=== PATIENT | male | born 1955 | race American Indian/Alaskan Native ===

== ENCOUNTER 2018-06-08 11:21 | Inpatient (IN) | payer OTHER ==
[2018-06-08] MEDS ORDERED: VANCOMYCIN/NS 1 GM/250 ML 1 GM/250 ML BAG IV ONE (12:52)
[2018-06-08] MEDS ORDERED: UNASYN/NS 3 GM/100 ML 3 GM/100 ML BAG IV SCH (13:00)
[2018-06-08] MEDS ORDERED: MORPHINE IV STA (13:54)
--- NOTE | 2018-06-08 13:54 | XRay Report ---
FINAL REPORT PROCEDURE: XR FOOT 3+V RT TECHNIQUE: Right foot, three views HISTORY: SWELLING AND PAIN COMPARISON: No prior studies are available for comparison. FINDINGS: There is dorsal soft tissue swelling. There are osteoarthritic changes particularly at the 1st metatarsophalangeal joint. There is an exostosisoff the proximal 1st phalanx. No acute fracture or dislocation is seen. IMPRESSION: No acute fracture is seen.
[2018-06-08 14:00] LABS: Basophils % (Auto) 0.4 % (0.0-1.8); Eosinophils # (Auto) 0.4 K/mm3 (0.0-0.4); Eosinophils % (Auto) 3.5 % (0.0-4.3); Hematocrit 41.8 % (35.5-45.6); Hemoglobin 13.3 gm/dl (11.8-15.2); Lymphocytes # (Auto) 1.6 K/mm3 (1.2-5.4); Lymphocytes % (Auto) 14.2 % (13.4-35.0); Mean Corpuscular HGB Conc 32 % (32-34); Mean Corpuscular Hemoglobin 30 pg (28-32); Mean Corpuscular Volume 95 fl (84-94); Monocytes # (Auto) 0.7 K/mm3 (0.0-0.8); Monocytes % (Auto) 6.4 % (0.0-7.3); Platelet Count 436 K/mm3 (140-440); Red Blood Count 4.39 M/mm3 (3.65-5.03); Red Cell Distribution Width 14.3 % (13.2-15.2)
--- NOTE | 2018-06-08 14:05 | XRay Report ---
FINAL REPORT PROCEDURE: XR TIBIA FIBULA 2V RT TECHNIQUE: Right tibia and fibula, AP and lateral views HISTORY: SWELLING AND PAIN COMPARISON: No prior studies are available for comparison. FINDINGS: No acute fracture or dislocation is seen. No focal osseous lesions. 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
[2018-06-08 14:11] LABS: Albumin 3.7 g/dL (3.9-5); BUN/Creatinine Ratio 23; Blood Urea Nitrogen 16 mg/dL (9-20); Hemolysis Index 211
[2018-06-08 14:30] LABS: Alanine Aminotransferase 23 units/L (7-56)
--- NOTE | 2018-06-08 16:05 | Emergency Department Report ---
Blank Doc - Documentation Documentation: I evaluated patient alongside my colleague Mr. Shahram ESQUIVEL. I discussed cased with Dr. Clifton hospitalist who accepted patient for IV abx of extensive right leg cellulitis.
[2018-06-08] MEDS ORDERED: ZOFRAN IV PRN (17:49)
[2018-06-08] MEDS ORDERED: TYLENOL PO PRN (17:49)
[2018-06-08] MEDS ORDERED: SODIUM CHLORIDE FLUSH SYRINGE 10 ML IV PRN (17:49)
--- NOTE | 2018-06-08 17:49 | History and Physical Report ---
History of Present Illness Date of examination: 06/08/18 Date of admission: 06/08/18 16:02 Chief complaint: CC Rt Leg abscess and Erythema for one week History of present illness: TORRES MARTINEZ 62 y/o male with no sig PMH comes in for Rt leg swelling above anlkle assoc with red ness for one week.Also drainage present.Low grade feverPain 04/05 Past History Past Medical History: No medical history Past Surgical History: No surgical history Social history: no significant social history Family history: hypertension Medications and Allergies Allergies Allergy/AdvReac Type Severity Reaction Status Date / Time No Known Allergies Allergy Unverified 06/08/18 11:40 Active Meds: Active Medications Ampicillin Sodium/Sulbactam Sodium (Unasyn/Ns 3 Gm/100 Ml) 3 gm in 100 mls @ 200 mls/hr IV ONCE ASIA Review of Systems All systems: negative Exam - Constitutional Vitals: Temp Pulse Resp BP Pulse Ox 97.6 F 60 18 159/80 100 06/08/18 17:33 06/08/18 17:33 06/08/18 17:33 06/08/18 17:33 06/08/18 11:40 General appearance: Present: no acute distress, well-nourished - EENT Eyes: Present: PERRL ENT: hearing intact, clear oral mucosa - Neck Neck: Present: supple, normal ROM - Respiratory Respiratory effort: normal Respiratory: bilateral: CTA - Cardiovascular Heart rate: 76 Rhythm: regular Heart Sounds: Present: S1 & S2. Absent: rub, click - Extremities Extremities: pulses symmetrical, No edema Extremity abnormal: erythema, other (Swelling with drainage 5cmx4 cm above rt ankle on Lateral aspect extensive erythema upto mid calf) Peripheral Pulses: within normal limits - Abdominal General gastrointestinal: Present: soft, non-tender, non-distended, normal bowel sounds Male genitourinary: Present: normal - Rectal Rectal Exam: deferred - Integumentary Integumentary: Present: clear, warm, dry - Musculoskeletal Musculoskeletal: gait normal, strength equal bilaterally - Psychiatric Psychiatric: appropriate mood/affect, intact judgment & insight - Neurologic Neurologic: CNII-XII intact, moves all extremities - Allied Health Allied health notes reviewed: nursing, case management Results - Labs CBC & Chem 7: 06/09/18 05:54 06/09/18 05:54 Labs: Laboratory Last Values WBC 11.3 K/mm3 (4.5-11.0) H 06/08/18 13:40 RBC 4.39 M/mm3 (3.65-5.03) 06/08/18 13:40 Hgb 13.3 gm/dl (11.8-15.2) 06/08/18 13:40 Hct 41.8 % (35.5-45.6) 06/08/18 13:40 MCV 95 fl (84-94) H 06/08/18 13:40 MCH 30 pg (28-32) 06/08/18 13:40 MCHC 32 % (32-34) 06/08/18 13:40 RDW 14.3 % (13.2-15.2) 06/08/18 13:40 Plt Count 436 K/mm3 (140-440) 06/08/18 13:40 Lymph % (Auto) 14.2 % (13.4-35.0) 06/08/18 13:40 [place] % (Auto) 6.4 % (0.0-7.3) 06/08/18 13:40 Eos % (Auto) 3.5 % (0.0-4.3) 06/08/18 13:40 Baso % (Auto) 0.4 % (0.0-1.8) 06/08/18 13:40 Lymph # 1.6 K/mm3 (1.2-5.4) 06/08/18 13:40 Clarke # 0.7 K/mm3 (0.0-0.8) 06/08/18 13:40 Eos # 0.4 K/mm3 (0.0-0.4) 06/08/18 13:40 Baso # 0.0 K/mm3 (0.0-0.1) 06/08/18 13:40 Seg Neutrophils % 75.5 % (40.0-70.0) H 06/08/18 13:40 Seg Neutrophils # 8.5 K/mm3 (1.8-7.7) H 06/08/18 13:40 Sodium 145 mmol/L (137-145) 06/08/18 13:40 Potassium 5.1 mmol/L (3.6-5.0) H 06/08/18 13:40 Chloride 106.1 mmol/L (98-107) 06/08/18 13:40 Carbon Dioxide 29 mmol/L (22-30) 06/08/18 13:40 Anion Gap 15 mmol/L 06/08/18 13:40 BUN 16 mg/dL (9-20) 06/08/18 13:40 Creatinine 0.7 mg/dL (0.8-1.5) L 06/08/18 13:40 Estimated GFR > 60 ml/min 06/08/18 13:40 BUN/Creatinine Ratio 23 % 06/08/18 13:40 Glucose 66 mg/dL (75-100) L 06/08/18 13:40 Calcium 9.0 mg/dL (8.4-10.2) 06/08/18 13:40 Total Bilirubin 0.30 mg/dL (0.1-1.2) 06/08/18 13:40 AST 34 units/L (5-40) 06/08/18 13:40 ALT 23 units/L (7-56) 06/08/18 13:40 Alkaline Phosphatase 64 units/L (35-129) 06/08/18 13:40 Total Protein 8.1 g/dL (6.3-8.2) 06/08/18 13:40 Albumin 3.7 g/dL (3.9-5) L 06/08/18 13:40 Albumin/Globulin Ratio 0.8 % 06/08/18 13:40 Assessment and Plan Advance Directives: Yes (FC) VTE prophylaxis?: Chemical Plan of care discussed with patient/family: Yes - Patient Problems (1) Cellulitis of leg, right Current Visit: Yes Status: Acute Plan to address problem: With abscess. IV abx initiated Surgery consult requested Pain control (2) DVT prophylaxis Current Visit: Yes Status: Acute Plan to address problem: On Lovenox and GI prophylaxis
[2018-06-08] MEDS ORDERED: UNASYN/NS 3 GM/100 ML 3 GM/100 ML BAG IV ONE (18:00)
[2018-06-08] MEDS: ceFAZolin 2 GM in NACL 0.9% 100 ML IV SCH (18:48)
[2018-06-08] MEDS: MORPHINE IV PRN (20:44)
[2018-06-09] MEDS: PEPCID PO SCH ×3 (00:17→22:11)
[2018-06-09] MEDS: SODIUM CHLORIDE FLUSH SYRINGE 10 ML IV SCH ×3 (00:18→22:00)
[2018-06-09] MEDS: ceFAZolin 2 GM in NACL 0.9% 100 ML IV SCH ×3 (02:45→17:43)
[2018-06-09 06:53] LABS: Basophils % (Auto) 0.3 % (0.0-1.8); Eosinophils # (Auto) 0.4 K/mm3 (0.0-0.4); Eosinophils % (Auto) 3.8 % (0.0-4.3); Hematocrit 35.8 % (35.5-45.6); Hemoglobin 12.1 gm/dl (11.8-15.2); Lymphocytes # (Auto) 1.4 K/mm3 (1.2-5.4); Lymphocytes % (Auto) 15.1 % (13.4-35.0); Mean Corpuscular HGB Conc 34 % (32-34); Mean Corpuscular Hemoglobin 32 pg (28-32); Mean Corpuscular Volume 93 fl (84-94); Monocytes # (Auto) 0.7 K/mm3 (0.0-0.8); Monocytes % (Auto) 7.6 % (0.0-7.3); Platelet Count 393 K/mm3 (140-440); Red Blood Count 3.85 M/mm3 (3.65-5.03); Red Cell Distribution Width 13.9 % (13.2-15.2)
[2018-06-09 07:11] LABS: Alanine Aminotransferase 16 units/L (7-56); Albumin 3.1 g/dL (3.9-5); BUN/Creatinine Ratio 19; Blood Urea Nitrogen 15 mg/dL (9-20); Calcium 8.4 mg/dL (8.4-10.2); Hemolysis Index 1
[2018-06-09] MEDS ORDERED: VANCOMYCIN PHARMACY TO DOSE IV SCH (08:00)
[2018-06-09] MEDS ORDERED: AFLURIA QUAD 2018-2019 SYRINGE IM ONE (12:00)
[2018-06-09] MEDS: VANCOMYCIN 1,500 MG in NACL 0.9% 500 ML 500 ML IV SCH ×2 (12:26→22:12)
--- NOTE | 2018-06-09 13:20 | Progress Note ---
Assessment and Plan Assessment and plan: Patient is a 62 yo man with no sig PMH comes in for Rt leg swelling and pains Cellulitis of leg, right: IV abx initiated, Surgery consult requested, Pain control Hyperkalemia, resolved: recheck bmp Hypoglycemia, resolved: repeat levels History Interval history: Patient was seen and examined. Follow-up on current diagnosis of right leg infection. Overnight uneventful. Patient denies any chest pain, shortness breath , nausea/vomiting or severe headaches. Imaging, nursing note, chart, labs and old chart reviewed. Discussed with patient. Hospitalist Physical - Physical exam Narrative exam: GEN: WDWN, NAD, Awake, Alert, Orientated HEENT: NCAT, EOMI, PERRL, OP Clear NECK: supple, no adenopathy, no thyromegaly, no JVD CVS/HEART: RRR, normal S1S2, pulses present bilaterally CHEST/LUNGS: CTA B, Symmetrical chest expansion, good air entry bilaterally GI/Abdomen: soft, NTND, good bowel sounds, no guarding or rebound /Bladder: no suprapubic tenderness, no CVA or paraspinal tenderness EXT/Skin: right lower ulceration MSK: FROM x 4 Neuro: CN 2-12 grossly intact, no new focal deficits Psych: calm - Constitutional Vitals: Temp Pulse Resp BP Pulse Ox 98.4 F 61 20 146/77 98 06/09/18 12:45 06/09/18 12:45 06/09/18 12:45 06/09/18 12:45 06/09/18 12:45 General appearance: Present: no acute distress, well-nourished Results - Labs CBC & Chem 7: 06/09/18 05:54 06/09/18 05:54 Labs: Laboratory Last Values WBC 9.5 K/mm3 (4.5-11.0) 06/09/18 05:54 RBC 3.85 M/mm3 (3.65-5.03) 06/09/18 05:54 Hgb 12.1 gm/dl (11.8-15.2) 06/09/18 05:54 Hct 35.8 % (35.5-45.6) D 06/09/18 05:54 MCV 93 fl (84-94) 06/09/18 05:54 MCH 32 pg (28-32) 06/09/18 05:54 MCHC 34 % (32-34) 06/09/18 05:54 RDW 13.9 % (13.2-15.2) 06/09/18 05:54 Plt Count 393 K/mm3 (140-440) 06/09/18 05:54 Lymph % (Auto) 15.1 % (13.4-35.0) 06/09/18 05:54 [place] % (Auto) 7.6 % (0.0-7.3) H 06/09/18 05:54 Eos % (Auto) 3.8 % (0.0-4.3) 06/09/18 05:54 Baso % (Auto) 0.3 % (0.0-1.8) 06/09/18 05:54 Lymph # 1.4 K/mm3 (1.2-5.4) 06/09/18 05:54 [place] # 0.7 K/mm3 (0.0-0.8) 06/09/18 05:54 Eos # 0.4 K/mm3 (0.0-0.4) 06/09/18 05:54 Baso # 0.0 K/mm3 (0.0-0.1) 06/09/18 05:54 Seg Neutrophils % 73.2 % (40.0-70.0) H 06/09/18 05:54 Seg Neutrophils # 6.9 K/mm3 (1.8-7.7) 06/09/18 05:54 Sodium 144 mmol/L (137-145) 06/09/18 05:54 Potassium 4.0 mmol/L (3.6-5.0) D 06/09/18 05:54 Chloride 107.6 mmol/L (98-107) H 06/09/18 05:54 Carbon Dioxide 29 mmol/L (22-30) 06/09/18 05:54 Anion Gap 11 mmol/L 06/09/18 05:54 BUN 15 mg/dL (9-20) 06/09/18 05:54 Creatinine 0.8 mg/dL (0.8-1.5) 06/09/18 05:54 Estimated GFR > 60 ml/min 06/09/18 05:54 BUN/Creatinine Ratio 19 % 06/09/18 05:54 Glucose 94 mg/dL (75-100) 06/09/18 05:54 Hemoglobin A1c 6.1 % (4-6) H 06/08/18 19:32 Calcium 8.4 mg/dL (8.4-10.2) 06/09/18 05:54 Total Bilirubin 0.20 mg/dL (0.1-1.2) 06/09/18 05:54 AST 13 units/L (5-40) 06/09/18 05:54 ALT 16 units/L (7-56) 06/09/18 05:54 Alkaline Phosphatase 62 units/L (35-129) 06/09/18 05:54 Total Protein 6.7 g/dL (6.3-8.2) 06/09/18 05:54 Albumin 3.1 g/dL (3.9-5) L 06/09/18 05:54 Albumin/Globulin Ratio 0.9 % 06/09/18 05:54
[2018-06-09] MEDS: PERCOCET 5/325 PO PRN (17:42)
[2018-06-10] MEDS: ceFAZolin 2 GM in NACL 0.9% 100 ML IV SCH ×3 (01:58→18:23)
[2018-06-10 06:54] LABS: Hematocrit 39.5 % (35.5-45.6); Hemoglobin 13.1 gm/dl (11.8-15.2); Mean Corpuscular HGB Conc 33 % (32-34); Mean Corpuscular Hemoglobin 31 pg (28-32); Mean Corpuscular Volume 93 fl (84-94); Platelet Count 426 K/mm3 (140-440); Red Blood Count 4.24 M/mm3 (3.65-5.03); Red Cell Distribution Width 14.2 % (13.2-15.2)
[2018-06-10] MEDS: PERCOCET 5/325 PO PRN ×2 (07:06→19:32)
[2018-06-10 07:08] LABS: BUN/Creatinine Ratio 15; Blood Urea Nitrogen 12 mg/dL (9-20); Calcium 8.7 mg/dL (8.4-10.2); Hemolysis Index 20
[2018-06-10] MEDS: VANCOMYCIN 1,500 MG in NACL 0.9% 500 ML 500 ML IV SCH (08:55)
[2018-06-10] MEDS: PEPCID PO SCH ×2 (09:03→22:38)
[2018-06-10] MEDS: SODIUM CHLORIDE FLUSH SYRINGE 10 ML IV SCH ×2 (09:04→22:39)
--- NOTE | 2018-06-10 14:12 | Progress Note ---
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 Wong, he request Vascular surgeon to drain. 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 Hughes for drainage History Interval history: Patient was seen and examined. Follow-up on current diagnosis of right leg infection. Overnight uneventful. Patient denies any chest pain, shortness breath , nausea/vomiting or severe headaches. Imaging, nursing note, chart, labs and old chart reviewed. Discussed with patient. Hospitalist Physical - Physical exam Narrative exam: GEN: WDWN, NAD, Awake, Alert, Orientated x 3 HEENT: NCAT, EOMI, PERRL, OP Clear NECK: supple, no adenopathy, no thyromegaly, no JVD CVS/HEART: RRR, normal S1S2, pulses present bilaterally CHEST/LUNGS: CTA B, Symmetrical chest expansion, good air entry bilaterally GI/Abdomen: soft, NTND, good bowel sounds, no guarding or rebound /Bladder: no suprapubic tenderness, no CVA or paraspinal tenderness EXT/Skin: right lower ulceration with anterior necrotic area and area of red moveable fluid above the necrotic core MSK: FROM x 4 Neuro: CN 2-12 grossly intact, no new focal deficits Psych: calm - Constitutional Vitals: Temp Pulse Resp BP Pulse Ox 98.1 F 62 20 145/83 99 06/10/18 11:37 06/10/18 11:37 06/10/18 11:37 06/10/18 11:37 06/10/18 11:37 General appearance: Present: no acute distress, well-nourished Results - Labs CBC & Chem 7: 06/10/18 05:30 06/10/18 05:30 Labs: Laboratory Last Values WBC 13.0 K/mm3 (4.5-11.0) H 06/10/18 05:30 RBC 4.24 M/mm3 (3.65-5.03) 06/10/18 05:30 Hgb 13.1 gm/dl (11.8-15.2) 06/10/18 05:30 Hct 39.5 % (35.5-45.6) 06/10/18 05:30 MCV 93 fl (84-94) 06/10/18 05:30 MCH 31 pg (28-32) 06/10/18 05:30 MCHC 33 % (32-34) 06/10/18 05:30 RDW 14.2 % (13.2-15.2) 06/10/18 05:30 Plt Count 426 K/mm3 (140-440) 06/10/18 05:30 Lymph % (Auto) 15.1 % (13.4-35.0) 06/09/18 05:54 [place] % (Auto) 7.6 % (0.0-7.3) H 06/09/18 05:54 Eos % (Auto) 3.8 % (0.0-4.3) 06/09/18 05:54 Baso % (Auto) 0.3 % (0.0-1.8) 06/09/18 05:54 Lymph # 1.4 K/mm3 (1.2-5.4) 06/09/18 05:54 [place] # 0.7 K/mm3 (0.0-0.8) 06/09/18 05:54 Eos # 0.4 K/mm3 (0.0-0.4) 06/09/18 05:54 Baso # 0.0 K/mm3 (0.0-0.1) 06/09/18 05:54 Seg Neutrophils % 73.2 % (40.0-70.0) H 06/09/18 05:54 Seg Neutrophils # 6.9 K/mm3 (1.8-7.7) 06/09/18 05:54 Sodium 138 mmol/L (137-145) 06/10/18 05:30 Potassium 4.2 mmol/L (3.6-5.0) 06/10/18 05:30 Chloride 101.9 mmol/L (98-107) 06/10/18 05:30 Carbon Dioxide 27 mmol/L (22-30) 06/10/18 05:30 Anion Gap 13 mmol/L 06/10/18 05:30 BUN 12 mg/dL (9-20) 06/10/18 05:30 Creatinine 0.8 mg/dL (0.8-1.5) 06/10/18 05:30 Estimated GFR > 60 ml/min 06/10/18 05:30 BUN/Creatinine Ratio 15 % 06/10/18 05:30 Glucose 94 mg/dL (75-100) 06/10/18 05:30 Hemoglobin A1c 6.1 % (4-6) H 06/08/18 19:32 Calcium 8.7 mg/dL (8.4-10.2) 06/10/18 05:30 Magnesium 1.90 mg/dL (1.7-2.3) 06/10/18 05:30 Total Bilirubin 0.20 mg/dL (0.1-1.2) 06/09/18 05:54 AST 13 units/L (5-40) 06/09/18 05:54 ALT 16 units/L (7-56) 06/09/18 05:54 Alkaline Phosphatase 62 units/L (35-129) 06/09/18 05:54 Total Protein 6.7 g/dL (6.3-8.2) 06/09/18 05:54 Albumin 3.1 g/dL (3.9-5) L 06/09/18 05:54 Albumin/Globulin Ratio 0.9 % 06/09/18 05:54
--- NOTE | 2018-06-10 17:46 | Consultation ---
History of Present Illness - Reason for Consult Consult date: 06/10/18 Evaluation for Peripheral Arterial Disease Requesting physician: JESSICA WHITMORE - History of Present Illness This patient is a 62-year-old -Cypriot male that was admitted 2017 via the emergency room due to right lower shown any cellulitis and possible abscess. The patient was unaware of any recent trauma. He states he awoke one morning to find his leg swollen with a new onset wound. This did not improve, therefore he went to the emergency room where his since been evaluated and admitted. Past History Past Medical History: other (BPH). denies: hypertension (history of hypertension that reportedly returned to baseline after he lost weight, he denies taking any chronic medications.) Past Surgical History: No surgical history Social history: no significant social history, Lives alone. denies: smoking ( remote brief period (approximately 6 months) of smoking history in his 20s) Family history: hypertension Medications and Allergies Allergies Allergy/AdvReac Type Severity Reaction Status Date / Time No Known Allergies Allergy Unverified 06/08/18 11:40 Active Meds: Active Medications Acetaminophen (Tylenol) 650 mg PO Q4H PRN PRN Reason: Pain MILD(1-3)/Fever >100.5/LUNA Famotidine (Pepcid) 20 mg PO BID [facility] Last Admin: 06/10/18 09:03 Dose: 20 mg Cefazolin Sodium 2 gm/ Sodium (Chloride) 100 mls @ 200 mls/hr IV Q8H [facility] Last Admin: 06/10/18 09:04 Dose: 200 mls/hr Vancomycin HCl 1,500 mg/ (Sodium Chloride) 515 mls @ 333.333 mls/hr IV Q12H [facility] Last Admin: 06/10/18 08:55 Dose: 333.333 mls/hr Morphine Sulfate (Morphine) 2 mg IV Q4H PRN PRN Reason: Pain, Moderate (4-6) if NPO Last Admin: 06/08/18 20:44 Dose: 2 mg Ondansetron HCl (Zofran) 4 mg IV Q8H PRN PRN Reason: Nausea And Vomiting Oxycodone/Acetaminophen (Percocet 5/325) 1 tab PO Q6H PRN PRN Reason: Pain, Moderate (4-6) Last Admin: 06/10/18 07:06 Dose: 1 tab Sodium Chloride (Sodium Chloride Flush Syringe 10 Ml) 10 ml IV BID [facility] Last Admin: 06/10/18 09:04 Dose: 10 ml Sodium Chloride (Sodium Chloride Flush Syringe 10 Ml) 10 ml IV PRN PRN PRN Reason: LINE FLUSH Review of Systems All systems: negative (he states the pain to his right leg has improved following admission, but now he complains of significant left lateral knee pain. ) Exam - Constitutional Vitals: Temp Pulse Resp BP Pulse Ox 98.1 F 62 20 145/83 99 06/10/18 11:37 06/10/18 11:37 06/10/18 11:37 06/10/18 11:37 06/10/18 11:37 General appearance: Present: no acute distress - EENT Eyes: Present: EOM intact ENT: hearing intact - Neck Neck: Present: supple - Respiratory Respiratory effort: normal - Extremities Extremities: no ischemia, pulses intact (is palpable dorsalis pedis and posterior tibial pulses bilaterally) Extremity abnormal: edema (significant pitting edema on the right lower extremity, he has bandages over the distal one third of his right lower leg. He has erythema in the same area. The bandages are clean without apparent strike through at present. The wound care nurse pictures were reviewed.) - Psychiatric Psychiatric: appropriate mood/affect, intact judgment & insight, cooperative - Neurologic Neurologic: no focal deficits Results - Labs CBC & Chem 7: 06/10/18 05:30 06/10/18 05:30 Labs: Abnormal lab results 06/10/18 Range/Units 05:30 WBC 13.0 H (4.5-11.0) K/mm3 Assessment and Plan This patient was admitted with a new onset wound his right leg starting about 1 week ago. He's had progressive edema and erythema. He has been admitted and started on intravenous antibiotics. He currently has a Leukocytosis of 13,000. He states that the pain to his right leg has improved following admission. He now complains of l new onset eft lateral knee pain. A general surgery/wound care consult has been requested to evaluate for possible abscess/I&D as necessary. A vascular surgery consult has been requested to evaluate for possible PVD which may impair his ability to heal distal wounds. I will order an arterial duplex with JOSE to further evaluate, but I suspect he will have adequate blood flow to heal distal wounds. Discussed with the patient. - Patient Problems (1) Cellulitis of leg, right Current Visit: Yes Status: Acute
[2018-06-11] MEDS: VANCOMYCIN 1,500 MG in NACL 0.9% 500 ML 500 ML IV SCH ×3 (01:01→20:33)
[2018-06-11] MEDS: ceFAZolin 2 GM in NACL 0.9% 100 ML IV SCH ×3 (01:01→17:55)
[2018-06-11] MEDS: PERCOCET 5/325 PO PRN ×2 (03:16→20:39)
--- NOTE | 2018-06-11 11:00 | Consultation ---
History of Present Illness Consult date: 06/11/18 Reason for consult: other (Right leg infection) - History of present illness History of present illness: 62 yo diabetic male with 5 day h/o right leg infection. He denies associated trauma. Past History Past Medical History: other (BPH). denies: hypertension (history of hypertension that reportedly returned to baseline after he lost weight, he denies taking any chronic medications.) Past Surgical History: No surgical history Social history: no significant social history, Lives alone. denies: smoking ( remote brief period (approximately 6 months) of smoking history in his 20s) Family history: hypertension Medications and Allergies Allergies Allergy/AdvReac Type Severity Reaction Status Date / Time No Known Allergies Allergy Unverified 06/08/18 11:40 Active Meds: Active Medications Acetaminophen (Tylenol) 650 mg PO Q4H PRN PRN Reason: Pain MILD(1-3)/Fever >100.5/LUNA Famotidine (Pepcid) 20 mg PO BID [facility] Last Admin: 06/10/18 22:38 Dose: 20 mg Cefazolin Sodium 2 gm/ Sodium (Chloride) 100 mls @ 200 mls/hr IV Q8H [facility] Last Admin: 06/11/18 10:54 Dose: 200 mls/hr Vancomycin HCl 1,500 mg/ (Sodium Chloride) 515 mls @ 333.333 mls/hr IV Q12H [facility] Last Admin: 06/11/18 08:04 Dose: 333.333 mls/hr Morphine Sulfate (Morphine) 2 mg IV Q4H PRN PRN Reason: Pain, Moderate (4-6) if NPO Last Admin: 06/08/18 20:44 Dose: 2 mg Ondansetron HCl (Zofran) 4 mg IV Q8H PRN PRN Reason: Nausea And Vomiting Oxycodone/Acetaminophen (Percocet 5/325) 1 tab PO Q6H PRN PRN Reason: Pain, Moderate (4-6) Last Admin: 06/11/18 03:16 Dose: 1 tab Sodium Chloride (Sodium Chloride Flush Syringe 10 Ml) 10 ml IV BID [facility] Last Admin: 06/10/18 22:39 Dose: 10 ml Sodium Chloride (Sodium Chloride Flush Syringe 10 Ml) 10 ml IV PRN PRN PRN Reason: LINE FLUSH Review of Systems All systems: negative (none.) Exam Vital Signs Temp Pulse Resp BP Pulse Ox 98.3 F 60 18 145/85 100 06/08/18 11:40 06/08/18 11:40 06/08/18 11:40 06/08/18 11:40 06/08/18 11:40 - General physical appearance Positive: well developed, well nourished, no distress - Eyes Positive: PERRL, normal occular movement - ENT Positive: normal pinna, normal nares, normal mucosa, no hearing loss, no congestion - Neck Positive: no masses, no bruits, trachea midline, no venous distension - Respiratory Positive: normal expansion, normal respiratory effort, clear to auscultation - Cardiovascular Rhythm: regular Heart Sounds: Present: S1 & S2. Absent: rub, click - Extremities Extremities: abnormal (Right DP and PT pulses are 2+. The right anterior distal leg has a 7.5 cm area of cellulitis with a possible 3 cm area of fluctuance. This area is mildly tender.) Results - Labs 06/10/18 05:30 06/10/18 05:30 Assessment and Plan - Patient Problems (1) Cellulitis of leg, right Current Visit: Yes Status: Acute Plan to address problem: 1) Elevation of RLE 2) Agree with IV antibiotics 3) MRI of RLE to look for evidence of abscess
--- NOTE | 2018-06-11 13:39 | Progress Note ---
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 Wong, he request Vascular surgeon to drain. So, I consult Vascular surgeon donor relations manager for evaluate for PAD and consulted wound care physician, Dr. Hughes for drainage MRI pending and arterial doppler pending History Interval history: Patient was seen and examined. Follow-up on current diagnosis of right leg infection. Overnight uneventful. Patient denies any chest pain, shortness breath , nausea/vomiting or severe headaches. Imaging, nursing note, chart, labs and old chart reviewed. Discussed with patient. Hospitalist Physical - Physical exam Narrative exam: GEN: WDWN, NAD, Awake, Alert, Orientated x 3 HEENT: NCAT, EOMI, PERRL, OP Clear NECK: supple, no adenopathy, no thyromegaly, no JVD CVS/HEART: RRR, normal S1S2, pulses present bilaterally CHEST/LUNGS: CTA B, Symmetrical chest expansion, good air entry bilaterally GI/Abdomen: soft, NTND, good bowel sounds, no guarding or rebound /Bladder: no suprapubic tenderness, no CVA or paraspinal tenderness EXT/Skin: right lower ulceration with anterior necrotic area and area of red moveable fluid above the necrotic core MSK: FROM x 4 Neuro: CN 2-12 grossly intact, no new focal deficits Psych: calm - Constitutional Vitals: Temp Pulse Resp BP Pulse Ox 99.0 F 61 20 136/83 98 06/11/18 11:03 06/11/18 11:03 06/11/18 11:03 06/11/18 11:03 06/11/18 11:03 General appearance: Present: no acute distress Results - Labs CBC & Chem 7: 06/10/18 05:30 06/10/18 05:30 Labs: Laboratory Last Values WBC 13.0 K/mm3 (4.5-11.0) H 06/10/18 05:30 RBC 4.24 M/mm3 (3.65-5.03) 06/10/18 05:30 Hgb 13.1 gm/dl (11.8-15.2) 06/10/18 05:30 Hct 39.5 % (35.5-45.6) 06/10/18 05:30 MCV 93 fl (84-94) 06/10/18 05:30 MCH 31 pg (28-32) 06/10/18 05:30 MCHC 33 % (32-34) 06/10/18 05:30 RDW 14.2 % (13.2-15.2) 06/10/18 05:30 Plt Count 426 K/mm3 (140-440) 06/10/18 05:30 Lymph % (Auto) 15.1 % (13.4-35.0) 06/09/18 05:54 [place] % (Auto) 7.6 % (0.0-7.3) H 06/09/18 05:54 Eos % (Auto) 3.8 % (0.0-4.3) 06/09/18 05:54 Baso % (Auto) 0.3 % (0.0-1.8) 06/09/18 05:54 Lymph # 1.4 K/mm3 (1.2-5.4) 06/09/18 05:54 [place] # 0.7 K/mm3 (0.0-0.8) 06/09/18 05:54 Eos # 0.4 K/mm3 (0.0-0.4) 06/09/18 05:54 Baso # 0.0 K/mm3 (0.0-0.1) 06/09/18 05:54 Seg Neutrophils % 73.2 % (40.0-70.0) H 06/09/18 05:54 Seg Neutrophils # 6.9 K/mm3 (1.8-7.7) 06/09/18 05:54 Sodium 138 mmol/L (137-145) 06/10/18 05:30 Potassium 4.2 mmol/L (3.6-5.0) 06/10/18 05:30 Chloride 101.9 mmol/L (98-107) 06/10/18 05:30 Carbon Dioxide 27 mmol/L (22-30) 06/10/18 05:30 Anion Gap 13 mmol/L 06/10/18 05:30 BUN 12 mg/dL (9-20) 06/10/18 05:30 Creatinine 0.8 mg/dL (0.8-1.5) 06/10/18 05:30 Estimated GFR > 60 ml/min 06/10/18 05:30 BUN/Creatinine Ratio 15 % 06/10/18 05:30 Glucose 94 mg/dL (75-100) 06/10/18 05:30 Hemoglobin A1c 6.1 % (4-6) H 06/08/18 19:32 Calcium 8.7 mg/dL (8.4-10.2) 06/10/18 05:30 Magnesium 1.90 mg/dL (1.7-2.3) 06/10/18 05:30 Total Bilirubin 0.20 mg/dL (0.1-1.2) 06/09/18 05:54 AST 13 units/L (5-40) 06/09/18 05:54 ALT 16 units/L (7-56) 06/09/18 05:54 Alkaline Phosphatase 62 units/L (35-129) 06/09/18 05:54 Total Protein 6.7 g/dL (6.3-8.2) 06/09/18 05:54 Albumin 3.1 g/dL (3.9-5) L 06/09/18 05:54 Albumin/Globulin Ratio 0.9 % 06/09/18 05:54
[2018-06-11] MEDS: PEPCID PO SCH ×2 (14:31→21:26)
[2018-06-11] MEDS: SODIUM CHLORIDE FLUSH SYRINGE 10 ML IV SCH (14:31)
[2018-06-11] MEDS: MORPHINE IV PRN (16:44)
--- NOTE | 2018-06-11 17:15 | Progress Note ---
Assessment and Plan Arterial duplex completed. Suspect he should have adequate arterial flow to heal distal wounds. No arterial intervention recommended at this point. - Patient Problems (1) Cellulitis of leg, right Current Visit: Yes Status: Acute Subjective Date of service: 06/11/18 Interval history: Pt awake, continues to c/o Left knee discomfort. Objective - Constitutional Vitals: Vital Signs - 12hr 06/11/18 06/11/18 06:31 11:03 Temperature 98.5 F 99.0 F Pulse Rate 55 L 61 Respiratory 20 20 Rate Blood Pressure 146/80 136/83 O2 Sat by Pulse 97 98 Oximetry General appearance: Present: no acute distress - EENT Eyes: EOM intact ENT: hearing intact - Neck Neck: supple - Respiratory Respiratory effort: normal Extremities: normal temperature, abnormal (RLE mild swelling on the lateral knee. LLE with swelling and erythema, bandages in place) - Psychiatric Psychiatric: appropriate mood/affect, intact judgment & insight, cooperative - Labs CBC & Chem 7: 06/10/18 05:30 06/10/18 05:30
[2018-06-12] MEDS: MORPHINE IV PRN ×2 (01:18→17:16)
[2018-06-12] MEDS: ceFAZolin 2 GM in NACL 0.9% 100 ML IV SCH ×3 (01:19→18:24)
[2018-06-12] MEDS: SODIUM CHLORIDE FLUSH SYRINGE 10 ML IV SCH ×3 (01:28→21:08)
[2018-06-12] MEDS: VANCOMYCIN 1,500 MG in NACL 0.9% 500 ML 500 ML IV SCH ×2 (08:26→20:43)
--- NOTE | 2018-06-12 09:25 | Progress Note ---
Assessment and Plan - Patient Problems (1) Cellulitis of leg, right Current Visit: Yes Status: Acute Plan to address problem: 1) Continue elevation 2) Check CBC 3) Awaiting results of MRI Subjective Date of service: 06/12/18 Patient Reports: Positive: no new complaints Objective Vital Signs - 12hr 06/12/18 06/12/18 06/12/18 00:37 01:18 01:48 Temperature 99.6 F Pulse Rate 67 Respiratory 20 18 18 Rate Respiratory Rate [Right Foot] Blood Pressure 154/86 O2 Sat by Pulse 98 Oximetry 06/12/18 06/12/18 01:59 06:09 Temperature 99.5 F Pulse Rate 68 Respiratory 20 Rate Respiratory 18 Rate [Right Foot] Blood Pressure 147/81 O2 Sat by Pulse 95 Oximetry - Musculoskeletal other (No change in right leg exam) - Labs 06/10/18 05:30 06/10/18 05:30
--- NOTE | 2018-06-12 09:53 | Progress Note ---
Assessment and Plan Patient has adequate blood flow for wound healing. He will need aggressive wound management. As an outpatient, the patient may be evaluated for venous insufficiency. Subjective Date of service: 06/12/18 Interval history: Patient with right ankle wound. Arterial duplex of his lower leg was performed which demonstrates adequate blood flow for wound healing. His right leg is otherwise swollen. A component of venous insufficiency may be present. Objective - Constitutional Vitals: Vital Signs - 12hr 06/12/18 06/12/18 06/12/18 00:37 01:18 01:48 Temperature 99.6 F Pulse Rate 67 Respiratory 20 18 18 Rate Respiratory Rate [Right Foot] Blood Pressure 154/86 O2 Sat by Pulse 98 Oximetry 06/12/18 06/12/18 01:59 06:09 Temperature 99.5 F Pulse Rate 68 Respiratory 20 Rate Respiratory 18 Rate [Right Foot] Blood Pressure 147/81 O2 Sat by Pulse 95 Oximetry General appearance: Present: no acute distress - EENT Eyes: PERRL ENT: hearing intact - Neck Neck: supple, normal ROM - Respiratory Respiratory effort: normal Extremities: abnormal Extremity abnormal: edema - Gastrointestinal General gastrointestinal: Present: deferred Rectal Exam: deferred - Genitourinary Male genitourinary: deferred - Psychiatric Psychiatric: appropriate mood/affect, cooperative - Labs CBC & Chem 7: 06/10/18 05:30 06/10/18 05:30
[2018-06-12] MEDS: PEPCID PO SCH ×2 (10:35→21:08)
[2018-06-12] MEDS: PERCOCET 5/325 PO PRN ×2 (10:35→18:01)
[2018-06-12 11:02] LABS: Basophils # (Auto) 0.1 K/mm3 (0.0-0.1); Basophils % (Auto) 0.9 % (0.0-1.8); Eosinophils # (Auto) 0.1 K/mm3 (0.0-0.4); Eosinophils % (Auto) 0.5 % (0.0-4.3); Hematocrit 39.7 % (35.5-45.6); Hemoglobin 13.6 gm/dl (11.8-15.2); Lymphocytes # (Auto) 1.1 K/mm3 (1.2-5.4); Lymphocytes % (Auto) 6.9 % (13.4-35.0); Mean Corpuscular HGB Conc 34 % (32-34); Mean Corpuscular Hemoglobin 31 pg (28-32); Mean Corpuscular Volume 92 fl (84-94); Monocytes # (Auto) 0.9 K/mm3 (0.0-0.8); Monocytes % (Auto) 5.8 % (0.0-7.3); Platelet Count 462 K/mm3 (140-440); Red Blood Count 4.33 M/mm3 (3.65-5.03)
--- NOTE | 2018-06-12 13:13 | Progress Note ---
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 Wong, he request Vascular surgeon to drain. So, I consult Vascular surgeon front end software developer for evaluate for PAD and consulted wound care physician, Dr. Hughes for drainage MRI pending History Interval history: Patient was seen and examined. Follow-up on current diagnosis of right leg infection. Overnight uneventful. Patient denies any chest pain, shortness breath , nausea/vomiting or severe headaches. Imaging, nursing note, chart, labs and old chart reviewed. Discussed with patient. Hospitalist Physical - Physical exam Narrative exam: GEN: WDWN, NAD, Awake, Alert, Orientated x 3 HEENT: NCAT, EOMI, PERRL, OP Clear NECK: supple, no adenopathy, no thyromegaly, no JVD CVS/HEART: RRR, normal S1S2, pulses present bilaterally CHEST/LUNGS: CTA B, Symmetrical chest expansion, good air entry bilaterally GI/Abdomen: soft, NTND, good bowel sounds, no guarding or rebound /Bladder: no suprapubic tenderness, no CVA or paraspinal tenderness EXT/Skin: right lower ulceration with anterior necrotic area and area of red moveable fluid above the necrotic core MSK: FROM x 4 Neuro: CN 2-12 grossly intact, no new focal deficits Psych: calm - Constitutional Vitals: Temp Pulse Resp BP Pulse Ox 99.3 F 75 18 128/75 96 06/12/18 11:38 06/12/18 11:38 06/12/18 11:38 06/12/18 11:38 06/12/18 11:38 General appearance: Present: no acute distress Results - Labs CBC & Chem 7: 06/12/18 10:24 06/10/18 05:30 Labs: Laboratory Last Values WBC 15.8 K/mm3 (4.5-11.0) H 06/12/18 10:24 RBC 4.33 M/mm3 (3.65-5.03) 06/12/18 10:24 Hgb 13.6 gm/dl (11.8-15.2) 06/12/18 10:24 Hct 39.7 % (35.5-45.6) 06/12/18 10:24 MCV 92 fl (84-94) 06/12/18 10:24 MCH 31 pg (28-32) 06/12/18 10:24 MCHC 34 % (32-34) 06/12/18 10:24 RDW 14.0 % (13.2-15.2) 06/12/18 10:24 Plt Count 462 K/mm3 (140-440) H 06/12/18 10:24 Lymph % (Auto) 6.9 % (13.4-35.0) L 06/12/18 10:24 [place] % (Auto) 5.8 % (0.0-7.3) 06/12/18 10:24 Eos % (Auto) 0.5 % (0.0-4.3) 06/12/18 10:24 Baso % (Auto) 0.9 % (0.0-1.8) 06/12/18 10:24 Lymph # 1.1 K/mm3 (1.2-5.4) L 06/12/18 10:24 [place] # 0.9 K/mm3 (0.0-0.8) H 06/12/18 10:24 Eos # 0.1 K/mm3 (0.0-0.4) 06/12/18 10:24 Baso # 0.1 K/mm3 (0.0-0.1) 06/12/18 10:24 Seg Neutrophils % 85.9 % (40.0-70.0) H 06/12/18 10:24 Seg Neutrophils # 13.6 K/mm3 (1.8-7.7) H 06/12/18 10:24 Sodium 138 mmol/L (137-145) 06/10/18 05:30 Potassium 4.2 mmol/L (3.6-5.0) 06/10/18 05:30 Chloride 101.9 mmol/L (98-107) 06/10/18 05:30 Carbon Dioxide 27 mmol/L (22-30) 06/10/18 05:30 Anion Gap 13 mmol/L 06/10/18 05:30 BUN 12 mg/dL (9-20) 06/10/18 05:30 Creatinine 0.8 mg/dL (0.8-1.5) 06/10/18 05:30 Estimated GFR > 60 ml/min 06/10/18 05:30 BUN/Creatinine Ratio 15 % 06/10/18 05:30 Glucose 94 mg/dL (75-100) 06/10/18 05:30 Hemoglobin A1c 6.1 % (4-6) H 06/08/18 19:32 Calcium 8.7 mg/dL (8.4-10.2) 06/10/18 05:30 Magnesium 1.90 mg/dL (1.7-2.3) 06/10/18 05:30 Total Bilirubin 0.20 mg/dL (0.1-1.2) 06/09/18 05:54 AST 13 units/L (5-40) 06/09/18 05:54 ALT 16 units/L (7-56) 06/09/18 05:54 Alkaline Phosphatase 62 units/L (35-129) 06/09/18 05:54 Total Protein 6.7 g/dL (6.3-8.2) 06/09/18 05:54 Albumin 3.1 g/dL (3.9-5) L 06/09/18 05:54 Albumin/Globulin Ratio 0.9 % 06/09/18 05:54
--- NOTE | 2018-06-12 16:02 | Vascular Lab Report ---
LOWER EXTREMITY ARTERIAL DUPLEX: REASON FOR EXAM: Peripheral arterial disease with ulceration. COMMENTS ON THE RIGHT: Triphasic waveforms are seen proximally. Triphasic waveforms are seen distally. The posterior tibial artery is patent but with monophasic flow. No significant plaque is identified. Findings are consistent with normal perfusion. Findings are consistent with the ability to heal distal wounds. COMMENTS ON THE LEFT: Triphasic waveforms are seen proximally. Biphasic waveforms are seen distally. No significant velocity gradients are identified. No significant plaque is identified. Findings are consistent with normal perfusion. Findings are consistent with the ability to heal distal wounds. IMPRESSION: RIGHT: Essentially normal arterial flow. LEFT:Essentially normal arterial flow.
--- NOTE | 2018-06-12 17:37 | Magnetic Resonance Report ---
FINAL REPORT PROCEDURE: MR LE NONJOINT RT WO CON TECHNIQUE: Magnetic resonance imaging of the RIGHT leg was performed using standard pulse sequences. CPT 60484-ZZ HISTORY: right quijano/lower leg infection COMPARISON: No prior studies are available for comparison. FINDINGS: The signal intensity from the tibia and fibula appear normal. No fractures are seen. No signal changes are seen that would suggest osteomyelitis. There is however a fluid collection seen distal lower leg anterior to the musculature and tibia and fibula extending approximately 5.7 centimeter transverse, 1.8 centimeter in depth and approximately 8 centimeter craniocaudal dimension suggesting hematoma, seroma or abscess. No other abnormalities are seen. IMPRESSION: Subcutaneous fluid collection anterior to the distal tibia and fibula as described suggesting hematoma, seroma or abscess. No other abnormalities are seen.
[2018-06-13] MEDS: PERCOCET 5/325 PO PRN ×4 (01:10→23:24)
[2018-06-13] MEDS: ceFAZolin 2 GM in NACL 0.9% 100 ML IV SCH ×2 (01:11→12:31)
[2018-06-13] MEDS: VANCOMYCIN 1,500 MG in NACL 0.9% 500 ML 500 ML IV SCH (08:18)
--- NOTE | 2018-06-13 12:12 | Progress Note ---
Assessment and Plan Assessment and plan: Cellulitis of right LE -Continue IV abx -MRI suggestive of hematoma, seroma or abscess -Surgery following Hyperkalemia, resolved Prediabetes with hemoglobin A1c of 6.1 -Diet control recommended Disposition: For discharge when medically stable and cleared by surgery History Interval history: Patient has no new complaints. He denies pain, chest pain or shortness of breath. Hospitalist Physical - Constitutional Vitals: Temp Pulse Resp BP Pulse Ox 99.4 F 72 20 138/76 97 06/13/18 06:24 06/13/18 06:24 06/13/18 08:45 06/13/18 06:24 06/13/18 06:24 General appearance: Present: no acute distress - EENT Eyes: Present: PERRL, EOM intact ENT: hearing intact, clear oral mucosa - Neck Neck: Present: supple - Respiratory Respiratory effort: normal Respiratory: bilateral: CTA - Cardiovascular Rhythm: regular Heart Sounds: Present: S1 & S2 - Extremities Extremity abnormal: other (dressing over right lower extremity noted) - Abdominal General gastrointestinal: soft, non-tender, non-distended, normal bowel sounds - Neurologic Neurologic: CNII-XII intact Results - Labs CBC & Chem 7: 06/12/18 10:24 06/10/18 05:30 Labs: Laboratory Last Values WBC 15.8 K/mm3 (4.5-11.0) H 06/12/18 10:24 RBC 4.33 M/mm3 (3.65-5.03) 06/12/18 10:24 Hgb 13.6 gm/dl (11.8-15.2) 06/12/18 10:24 Hct 39.7 % (35.5-45.6) 06/12/18 10:24 MCV 92 fl (84-94) 06/12/18 10:24 MCH 31 pg (28-32) 06/12/18 10:24 MCHC 34 % (32-34) 06/12/18 10:24 RDW 14.0 % (13.2-15.2) 06/12/18 10:24 Plt Count 462 K/mm3 (140-440) H 06/12/18 10:24 Lymph % (Auto) 6.9 % (13.4-35.0) L 06/12/18 10:24 [place] % (Auto) 5.8 % (0.0-7.3) 06/12/18 10:24 Eos % (Auto) 0.5 % (0.0-4.3) 06/12/18 10:24 Baso % (Auto) 0.9 % (0.0-1.8) 06/12/18 10:24 Lymph # 1.1 K/mm3 (1.2-5.4) L 06/12/18 10:24 [place] # 0.9 K/mm3 (0.0-0.8) H 06/12/18 10:24 Eos # 0.1 K/mm3 (0.0-0.4) 06/12/18 10:24 Baso # 0.1 K/mm3 (0.0-0.1) 06/12/18 10:24 Seg Neutrophils % 85.9 % (40.0-70.0) H 06/12/18 10:24 Seg Neutrophils # 13.6 K/mm3 (1.8-7.7) H 06/12/18 10:24 Sodium 138 mmol/L (137-145) 06/10/18 05:30 Potassium 4.2 mmol/L (3.6-5.0) 06/10/18 05:30 Chloride 101.9 mmol/L (98-107) 06/10/18 05:30 Carbon Dioxide 27 mmol/L (22-30) 06/10/18 05:30 Anion Gap 13 mmol/L 06/10/18 05:30 BUN 12 mg/dL (9-20) 06/10/18 05:30 Creatinine 0.8 mg/dL (0.8-1.5) 06/10/18 05:30 Estimated GFR > 60 ml/min 06/10/18 05:30 BUN/Creatinine Ratio 15 % 06/10/18 05:30 Glucose 94 mg/dL (75-100) 06/10/18 05:30 Hemoglobin A1c 6.1 % (4-6) H 06/08/18 19:32 Calcium 8.7 mg/dL (8.4-10.2) 06/10/18 05:30 Magnesium 1.90 mg/dL (1.7-2.3) 06/10/18 05:30 Total Bilirubin 0.20 mg/dL (0.1-1.2) 06/09/18 05:54 AST 13 units/L (5-40) 06/09/18 05:54 ALT 16 units/L (7-56) 06/09/18 05:54 Alkaline Phosphatase 62 units/L (35-129) 06/09/18 05:54 Total Protein 6.7 g/dL (6.3-8.2) 06/09/18 05:54 Albumin 3.1 g/dL (3.9-5) L 06/09/18 05:54 Albumin/Globulin Ratio 0.9 % 06/09/18 05:54 Vancomycin Trough 8.3 ug/mL (5.0-20.0) 06/12/18 19:41
[2018-06-13] MEDS: PEPCID PO SCH ×2 (12:31→21:43)
[2018-06-13] MEDS: SODIUM CHLORIDE FLUSH SYRINGE 10 ML IV SCH ×2 (12:38→21:43)
--- NOTE | 2018-06-13 14:03 | Progress Note ---
Assessment and Plan - Patient Problems (1) Cellulitis of leg, right Current Visit: Yes Status: Acute (2) Abscess of right leg Current Visit: Yes Status: Acute Plan to address problem: 1) I&D tomorrow 2) NPO after MN Subjective Date of service: 06/13/18 Patient Reports: Positive: no new complaints Objective Vital Signs - 12hr 06/13/18 06/13/18 06/13/18 02:10 06:24 08:45 Temperature 99.4 F Pulse Rate 72 Respiratory 18 18 20 Rate Blood Pressure 138/76 O2 Sat by Pulse 97 Oximetry 06/13/18 06/13/18 09:45 11:35 Temperature 98.7 F Pulse Rate 71 Respiratory 20 22 Rate Blood Pressure 138/78 O2 Sat by Pulse 96 Oximetry - Musculoskeletal other (No change in right leg exam) - Labs 06/12/18 10:24 06/10/18 05:30 - Imaging Additional Studies: MRI of RLE c/w abscess of right anterior leg
[2018-06-13] MEDS: VANCOMYCIN 1,750 MG in NACL 0.9% 500 ML 500 ML IV SCH (18:10)
[2018-06-14] MEDS: MORPHINE IV PRN ×2 (05:28→18:44)
[2018-06-14 05:54] LABS: Basophils # (Auto) 0.1 K/mm3 (0.0-0.1); Basophils % (Auto) 0.7 % (0.0-1.8); Eosinophils # (Auto) 0.2 K/mm3 (0.0-0.4); Eosinophils % (Auto) 1.6 % (0.0-4.3); Hematocrit 40.2 % (35.5-45.6); Hemoglobin 13.3 gm/dl (11.8-15.2); Lymphocytes # (Auto) 0.9 K/mm3 (1.2-5.4); Lymphocytes % (Auto) 7.3 % (13.4-35.0); Mean Corpuscular HGB Conc 33 % (32-34); Mean Corpuscular Hemoglobin 31 pg (28-32); Mean Corpuscular Volume 92 fl (84-94); Monocytes # (Auto) 1.3 K/mm3 (0.0-0.8); Monocytes % (Auto) 10.3 % (0.0-7.3); Platelet Count 476 K/mm3 (140-440); Red Blood Count 4.36 M/mm3 (3.65-5.03); Red Cell Distribution Width 13.8 % (13.2-15.2)
[2018-06-14] MEDS: VANCOMYCIN 1,750 MG in NACL 0.9% 500 ML 500 ML IV SCH (06:00)
--- NOTE | 2018-06-14 06:10 | XRay Report ---
FINAL REPORT EXAM: XR CHEST 1V AP HISTORY: increased teperature TECHNIQUE: AP portable view(s) of the chest obtained. PRIORS: None. FINDINGS: No mediastinal shift. Cardiac silhouette is not enlarged. No pneumothorax, effusion, or focal pulmonary opacity identified. No acute skeletal findings. IMPRESSION: No acute pulmonary finding identified.
[2018-06-14] MEDS: PEPCID PO SCH ×2 (11:30→21:49)
[2018-06-14] MEDS: SODIUM CHLORIDE FLUSH SYRINGE 10 ML IV SCH ×2 (11:30→21:50)
[2018-06-14] MEDS: LACTATED RINGERS 1,000 ML IV SCH (13:02)
[2018-06-14] MEDS ORDERED: NEURONTIN ONE (13:26)
[2018-06-14] MEDS ORDERED: HEPARIN SUB-Q NR (13:45)
[2018-06-14] MEDS ORDERED: DILAUDID ONE (13:48)
[2018-06-14] MEDS ORDERED: DIPRIVAN 10 MG/ML IV ONE ×3 (13:49→14:35)
[2018-06-14] MEDS ORDERED: VERSED ONE (13:49)
[2018-06-14] MEDS ORDERED: DILAUDID IV PRN (14:25)
--- NOTE | 2018-06-14 14:29 | Anesthesia Consultation ---
Anesthesia Consult and Med Hx Date of service: 06/14/18 - Airway Anesthetic Teeth Evaluation: Poor ROM Head & Neck: Adequate Mental/Hyoid Distance: Adequate Mallampati Class: Class II Intubation Access Assessment: Probably Good - Pulmonary Exam CTA: Yes - Cardiac Exam Cardiac Exam: RRR - Pre-Operative Health Status ASA Pre-Surgery Classification: ASA3 Proposed Anesthetic Plan: General (HTN, Borderline DM, Denies CAD, Denies CHF) - Cardiovascular System Hx Hypertension: Yes - Central Nervous System Hx Psychiatric Problems: No - Other Systems Hx Cancer: No
--- NOTE | 2018-06-14 14:30 | Anesthesia Day of Surgery ---
Anesthesia Day of Surgery - Day of Surgery Patient Examined: Yes Patient H&P Reviewed: Yes Patient is NPO: Yes
--- NOTE | 2018-06-14 14:45 | Anesthesia Consultation ---
Anesthesia Consult and Med Hx Date of service: 06/14/18 - Airway Anesthetic Teeth Evaluation: Good ROM Head & Neck: Adequate Mental/Hyoid Distance: Adequate Mallampati Class: Class II Intubation Access Assessment: Probably Good - Pulmonary Exam CTA: Yes - Cardiac Exam Cardiac Exam: RRR - Pre-Operative Health Status ASA Pre-Surgery Classification: ASA3 Proposed Anesthetic Plan: General (HTN, Borderline DM) - Cardiovascular System Hx Hypertension: Yes - Central Nervous System Hx Psychiatric Problems: No - Other Systems Hx Cancer: No
--- NOTE | 2018-06-14 14:57 | Procedure Note ---
Date of procedure: 06/13/18 Pre-op diagnosis: Right leg abscess Post-op diagnosis: same Procedure: 1) I&D of right leg abscess 2) FNA of right leg abscess Description of procedure: Pt was placed supine on the OR table. MAC anesthesia was administered. Pt's right leg and foot were prepped and draped. A FNA was performed at the site of maximal fluctuance. This resulted in return of 1.5 ml of seropurulent fluid. I&D was then performed with the scalpel. This resulted in drainage of a moderate amount of pus. The pus was collected and was sent for aerobic and anaerobic C&S. The incision was extended cephalad and caudad to completely unroof the abscess cavity. The wound was irrigated with warm saline. Hemostasis was obtained with the Bovie and Surgicel. The wound was packed open with a Kerlix roll followed by a Kerlix wrap about the right foot. Pt tolerated the procedure well. He was taken to PACU in stable condition. Anesthesia: MAC Surgeon: KALEE ROSALES Estimated blood loss: 50-100ml Pathology: list (Aerobic and anaerobic C&S) Specimen disposition: to lab Condition: stable Disposition: PACU
[2018-06-14] MEDS ORDERED: LACTATED RINGERS 1,000 ML IV SCH (15:00)
[2018-06-14] MEDS ORDERED: NACL 0.9% IR ONE (15:07)
--- NOTE | 2018-06-14 15:34 | Progress Note ---
Assessment and Plan - Patient Problems (1) Cellulitis of leg, right Current Visit: Yes Status: Acute Plan to address problem: With abscess. IV abx initiated Going in for I and D today Pain control (2) Malnutrition Current Visit: Yes Status: Chronic Qualifiers: Malnutrition type: protein-calorie malnutrition Protein-calorie malnutrition severity: mild Qualified Code(s): E44.1 - Mild protein-calorie malnutrition Plan to address problem: Dietary supplements (3) DVT prophylaxis Current Visit: Yes Status: Acute Plan to address problem: On Lovenox and GI prophylaxis Subjective Date of service: 06/14/18 Principal diagnosis: Rt leg abscess Interval history: Patient going in for I/D today Objective - Constitutional Vitals: Vital Signs - 12hr 06/14/18 06/14/18 06/14/18 05:35 10:00 12:05 Temperature 102.2 F H 98.4 F Pulse Rate 97 H 93 H Respiratory 16 20 Rate Blood Pressure 126/88 123/75 O2 Sat by Pulse 97 96 98 Oximetry 06/14/18 06/14/18 06/14/18 14:52 14:55 15:00 Temperature 97.8 F Pulse Rate 96 H 96 H 92 H Respiratory 16 10 L 16 Rate Blood Pressure 155/97 148/95 148/93 O2 Sat by Pulse 98 99 100 Oximetry 06/14/18 06/14/18 06/14/18 15:04 15:15 15:30 Temperature Pulse Rate 91 H 100 H Respiratory 14 14 14 Rate Blood Pressure 145/90 140/95 O2 Sat by Pulse 100 97 Oximetry General appearance: Present: no acute distress, well-nourished - EENT Eyes: PERRL, EOM intact ENT: hearing intact, clear oral mucosa Ears: bilateral: normal - Neck Neck: supple, normal ROM - Respiratory Respiratory effort: normal Respiratory: bilateral: CTA - Breasts Breasts: normal - Cardiovascular Rhythm: regular Heart Sounds: Present: S1 & S2. Absent: gallop, rub Extremities: pulses intact, No edema, normal color, Full ROM, abnormal (RLE Swelling/Abscess above ankle on lateral aspect) - Gastrointestinal General gastrointestinal: Present: soft, non-tender, non-distended, normal bowel sounds - Genitourinary Male genitourinary: normal - Integumentary Integumentary: clear, warm, dry - Musculoskeletal Musculoskeletal: 1, strength equal bilaterally - Neurologic Neurologic: moves all extremities - Psychiatric Psychiatric: memory intact, appropriate mood/affect, intact judgment & insight - Labs CBC & Chem 7: 06/15/18 05:02 06/15/18 05:02 Labs: Abnormal lab results 06/14/18 Range/Units 04:53 WBC 12.1 H (4.5-11.0) K/mm3 Plt Count 476 H (140-440) K/mm3 Lymph % (Auto) 7.3 L (13.4-35.0) % [place] % (Auto) 10.3 H (0.0-7.3) % Lymph # 0.9 L (1.2-5.4) K/mm3 [place] # 1.3 H (0.0-0.8) K/mm3 Seg Neutrophils % 80.1 H (40.0-70.0) % Seg Neutrophils # 9.7 H (1.8-7.7) K/mm3
--- NOTE | 2018-06-14 19:33 | Post Anesthesia Evaluation ---
- Post Anesthesia Evaluation Patient Participated: Yes Airway Patent: Yes Stable Respiratory Function: Yes Nausea/Vomiting: No Temp > 96.8F: Yes Pain Manageable: Yes Adequeate Hydration: Yes Anesthesia Complications: No
[2018-06-14] MEDS: PERCOCET 5/325 PO PRN (21:55)
[2018-06-15] MEDS: MORPHINE IV PRN (01:42)
[2018-06-15] MEDS: PERCOCET 5/325 PO PRN ×4 (04:21→23:10)
[2018-06-15] MEDS: LACTATED RINGERS 1,000 ML IV SCH ×2 (04:26→17:44)
[2018-06-15 05:57] LABS: Basophils % (Auto) 0.5 % (0.0-1.8); Eosinophils # (Auto) 0.2 K/mm3 (0.0-0.4); Eosinophils % (Auto) 2.8 % (0.0-4.3); Hematocrit 38.8 % (35.5-45.6); Hemoglobin 12.9 gm/dl (11.8-15.2); Lymphocytes # (Auto) 0.9 K/mm3 (1.2-5.4); Lymphocytes % (Auto) 10.9 % (13.4-35.0); Mean Corpuscular HGB Conc 33 % (32-34); Mean Corpuscular Hemoglobin 31 pg (28-32); Mean Corpuscular Volume 92 fl (84-94); Monocytes # (Auto) 1.1 K/mm3 (0.0-0.8); Monocytes % (Auto) 13.7 % (0.0-7.3); Platelet Count 465 K/mm3 (140-440); Red Cell Distribution Width 13.8 % (13.2-15.2)
[2018-06-15 06:18] LABS: Alanine Aminotransferase 21 units/L (7-56); Albumin 3.2 g/dL (3.9-5); BUN/Creatinine Ratio 26; Blood Urea Nitrogen 18 mg/dL (9-20); Calcium 8.9 mg/dL (8.4-10.2); Hemolysis Index 2
--- NOTE | 2018-06-15 10:17 | Progress Note ---
Assessment and Plan - Patient Problems (1) Cellulitis of leg, right Current Visit: Yes Status: Acute Plan to address problem: Had I and D yesterday COnt Dressing and IV abx Check cultures Maybe discharged tomorrow after talking with the Surgeon Dr Hughes--on oral anibiotics with follow up as outpatient with surgery. home health ordered for wound dressing. (2) Malnutrition Current Visit: Yes Status: Chronic Qualifiers: Malnutrition type: protein-calorie malnutrition Protein-calorie malnutrition severity: mild Qualified Code(s): E44.1 - Mild protein-calorie malnutrition Plan to address problem: Dietary supplements (3) DVT prophylaxis Current Visit: Yes Status: Acute Plan to address problem: On Lovenox and GI prophylaxis Subjective Date of service: 06/15/18 Principal diagnosis: Rt leg abscess Interval history: Patient had I/D yesterday Objective - Constitutional Vitals: Vital Signs - 12hr 06/14/18 06/15/18 23:20 06:08 Temperature 98.3 F 98.6 F Pulse Rate 59 L 79 Respiratory 18 16 Rate Blood Pressure 139/77 133/84 O2 Sat by Pulse 98 92 Oximetry General appearance: Present: no acute distress, well-nourished - EENT Eyes: PERRL, EOM intact ENT: hearing intact, clear oral mucosa Ears: bilateral: normal - Neck Neck: supple, normal ROM - Respiratory Respiratory effort: normal Respiratory: bilateral: CTA - Breasts Breasts: normal - Cardiovascular Heart rate: 76 Rhythm: regular Heart Sounds: Present: S1 & S2. Absent: gallop, rub Extremities: no ischemia, pulses intact, No edema, normal color, Full ROM - Gastrointestinal General gastrointestinal: Present: soft, non-tender, non-distended, normal bowel sounds - Genitourinary Male genitourinary: normal - Integumentary Integumentary: clear, warm, dry - Musculoskeletal Musculoskeletal: 1, strength equal bilaterally - Neurologic Neurologic: moves all extremities - Psychiatric Psychiatric: appropriate mood/affect, intact judgment & insight, memory intact, other - Allied health notes Allied health notes reviewed: nursing, case management - Labs CBC & Chem 7: 06/15/18 05:02 06/15/18 05:02 Labs: Wound cultures Gram positive cocci Abnormal lab results 06/15/18 06/15/18 Range/Units 05:02 05:02 Plt Count 465 H (140-440) K/mm3 Lymph % (Auto) 10.9 L (13.4-35.0) % [place] % (Auto) 13.7 H (0.0-7.3) % Lymph # 0.9 L (1.2-5.4) K/mm3 [place] # 1.1 H (0.0-0.8) K/mm3 Seg Neutrophils % 72.1 H (40.0-70.0) % Sodium 133 L (137-145) mmol/L Chloride 96.8 L (98-107) mmol/L Creatinine 0.7 L (0.8-1.5) mg/dL Albumin 3.2 L (3.9-5) g/dL
[2018-06-15] MEDS: PEPCID PO SCH ×2 (11:21→23:10)
[2018-06-15] MEDS: SODIUM CHLORIDE FLUSH SYRINGE 10 ML IV SCH ×2 (11:22→23:10)
[2018-06-15] MEDS: VANCOMYCIN 1,750 MG in NACL 0.9% 500 ML 500 ML IV SCH (17:50)
[2018-06-16] MEDS: PERCOCET 5/325 PO PRN ×3 (05:48→22:01)
[2018-06-16] MEDS: VANCOMYCIN 1,750 MG in NACL 0.9% 500 ML 500 ML IV SCH ×4 (05:52→18:51)
[2018-06-16] MEDS: PEPCID PO SCH ×2 (10:08→22:01)
[2018-06-16] MEDS: SODIUM CHLORIDE FLUSH SYRINGE 10 ML IV SCH ×2 (10:09→22:10)
--- NOTE | 2018-06-16 11:13 | Progress Note ---
Assessment and Plan Assessment and plan: Cellulitis of leg, right/sepsis sp I and D, awaiting wound cx report continue abx, case dw ID LEft knee swelling and pain -?gout? start indocin -consulted Ortho sx, for possible arthrocentesis, send for Culture and crystal eval Malnutrition Dietary supplements DVT prophylaxis On Lovenox and GI prophylaxis History Interval history: Had a fever, c/o Left knee pain and swelling Review of systems Constitutional: No fevers, no malaise, no joint pains CVS: No chest pain, no orthopnea, no dyspnea on exertion, no pedal edema GI: No abdominal pain, no diarrhea, no vomiting, no constipation Respiratory: No shortness of breath, no wheezing, no coughing Hospitalist Physical - Physical exam Narrative exam: General.: Appears well, no distress, nontoxic HEENT: Moist mucous membranes, extraocular muscles intact, no lymphadenopathy Neck: supple Cardiac: S1-S2 heard Lungs: clear to auscultation bilaterally Abdomen: soft , nontender, nondistended, bowel sounds positive Extremities: Right leg with clean surgical dressing, Left knee pain and swelling neurologic: no gross focal deficits Psych: appropriate behavior, appropriate mood, corporative, judgment intact - Constitutional Vitals: Temp Pulse Resp BP Pulse Ox 99.5 F 83 18 135/77 97 06/16/18 05:49 06/16/18 05:49 06/16/18 05:49 06/16/18 05:49 06/16/18 05:49 General appearance: Present: no acute distress, well-nourished Results - Labs CBC & Chem 7: 06/15/18 05:02 06/15/18 05:02 Labs: Laboratory Last Values WBC 7.9 K/mm3 (4.5-11.0) 06/15/18 05:02 RBC 4.20 M/mm3 (3.65-5.03) 06/15/18 05:02 Hgb 12.9 gm/dl (11.8-15.2) 06/15/18 05:02 Hct 38.8 % (35.5-45.6) 06/15/18 05:02 MCV 92 fl (84-94) 06/15/18 05:02 MCH 31 pg (28-32) 06/15/18 05:02 MCHC 33 % (32-34) 06/15/18 05:02 RDW 13.8 % (13.2-15.2) 06/15/18 05:02 Plt Count 465 K/mm3 (140-440) H 06/15/18 05:02 Lymph % (Auto) 10.9 % (13.4-35.0) L 06/15/18 05:02 [place] % (Auto) 13.7 % (0.0-7.3) H 06/15/18 05:02 Eos % (Auto) 2.8 % (0.0-4.3) 06/15/18 05:02 Baso % (Auto) 0.5 % (0.0-1.8) 06/15/18 05:02 Lymph # 0.9 K/mm3 (1.2-5.4) L 06/15/18 05:02 [place] # 1.1 K/mm3 (0.0-0.8) H 06/15/18 05:02 Eos # 0.2 K/mm3 (0.0-0.4) 06/15/18 05:02 Baso # 0.0 K/mm3 (0.0-0.1) 06/15/18 05:02 Seg Neutrophils % 72.1 % (40.0-70.0) H 06/15/18 05:02 Seg Neutrophils # 5.7 K/mm3 (1.8-7.7) 06/15/18 05:02 Sodium 133 mmol/L (137-145) L 06/15/18 05:02 Potassium 4.5 mmol/L (3.6-5.0) 06/15/18 05:02 Chloride 96.8 mmol/L (98-107) L 06/15/18 05:02 Carbon Dioxide 27 mmol/L (22-30) 06/15/18 05:02 Anion Gap 14 mmol/L 06/15/18 05:02 BUN 18 mg/dL (9-20) 06/15/18 05:02 Creatinine 0.7 mg/dL (0.8-1.5) L 06/15/18 05:02 Estimated GFR > 60 ml/min 06/15/18 05:02 BUN/Creatinine Ratio 26 % 06/15/18 05:02 Glucose 89 mg/dL (75-100) 06/15/18 05:02 POC Glucose 81 (70-105) 06/15/18 07:44 Hemoglobin A1c 6.1 % (4-6) H 06/08/18 19:32 Calcium 8.9 mg/dL (8.4-10.2) 06/15/18 05:02 Magnesium 1.90 mg/dL (1.7-2.3) 06/10/18 05:30 Total Bilirubin 0.40 mg/dL (0.1-1.2) 06/15/18 05:02 AST 20 units/L (5-40) 06/15/18 05:02 ALT 21 units/L (7-56) 06/15/18 05:02 Alkaline Phosphatase 60 units/L (35-129) 06/15/18 05:02 Total Protein 7.9 g/dL (6.3-8.2) 06/15/18 05:02 Albumin 3.2 g/dL (3.9-5) L 06/15/18 05:02 Albumin/Globulin Ratio 0.7 % 06/15/18 05:02 Vancomycin Trough 8.3 ug/mL (5.0-20.0) 06/12/18 19:41
--- NOTE | 2018-06-16 12:41 | Consultation ---
History of Present Illness - Reason for Consult Consult date: 06/16/18 Right leg cellulitis with abscess Requesting physician: ADY MCLAUGHLIN - History of Present Illness The patient is a 62-year-old male with no significant past medical history who presented to the emergency room on 06/08/2018 with complaints of right leg swelling with associated redness that had been going on for 1 week prior to admission. This was associated with some drainage. Etiology is unknown, patient denied any trauma, patient thinks it possibly could be a spider bite. An MRI showed findings concerning for abscess for which general surgery was consulted and on 06/14, the patient underwent an I&D. He had been receiving IV vancomycin and Unasyn since admission, Unasyn was then changed to cefepime and Flagyl. He currently feels well except for some residual pain in his right leg that is packed and dressed. For the last 4-5 days , since admission, he started developing left knee swelling and pain. He does report a remote history of gout, does not take any medications for it. Has been having fevers, as high as 102F. Lives alone. Denies any smoking, alcohol only rarely. No recreational drug use. No animal exposure. Review of Systems: General: fevers and chills + HEENT: no new visual disturbance Respiratory: No cough, sputum, hemoptysis or shortness of breath Cardiovascular: No chest pain, syncope Gastrointestinal: No nausea, vomiting or diarrhea Genitourinary: No dysuria or hematuria Musculoskeletal: No new or worsening neck pain or back pain Neurologic: No headaches, seizures Hematologic: No easy bruising or bleeding Endocrine: No night sweats or acute weight loss Skin: negative for rash, jaundice Psychiatric: No suicidal or homicidal ideation Past History Past Medical History: other (BPH). denies: hypertension (history of hypertension that reportedly returned to baseline after he lost weight, he denies taking any chronic medications.) Past Surgical History: No surgical history Social history: no significant social history, Lives alone. denies: smoking ( remote brief period (approximately 6 months) of smoking history in his 20s) Family history: hypertension Medications and Allergies Allergies Allergy/AdvReac Type Severity Reaction Status Date / Time No Known Allergies Allergy Unverified 06/08/18 11:40 Active Meds: Active Medications Acetaminophen (Tylenol) 650 mg PO Q4H PRN PRN Reason: Pain MILD(1-3)/Fever >100.5/LUNA Last Admin: 06/13/18 18:32 Dose: 650 mg Famotidine (Pepcid) 20 mg PO BID [facility] Last Admin: 06/16/18 10:08 Dose: 20 mg Vancomycin HCl 1,750 mg/ (Sodium Chloride) 517.5 mls @ 333.333 mls/hr IV Q12H [facility] Last Admin: 06/16/18 05:54 Dose: 333.333 mls/hr Lactated Ringer's (Lactated Ringers) 1,000 mls @ 100 mls/hr IV DIRECT [facility] Last Admin: 06/15/18 17:44 Dose: 100 mls/hr Cefepime HCl (Maxipime/Ns 2 Gm/100 Ml) 2 gm in 100 mls @ 200 mls/hr IV Q12H [facility] ; Protocol Metronidazole (Flagyl 500 Mg/100 Ml) 500 mg in 100 mls @ 100 mls/hr IV Q8HR [facility] ; Protocol Morphine Sulfate (Morphine) 2 mg IV Q4H PRN PRN Reason: Pain, Moderate (4-6) if NPO Last Admin: 06/15/18 01:42 Dose: 2 mg Ondansetron HCl (Zofran) 4 mg IV Q8H PRN PRN Reason: Nausea And Vomiting Last Admin: 06/12/18 01:19 Dose: 4 mg Oxycodone/Acetaminophen (Percocet 5/325) 1 tab PO Q6H PRN PRN Reason: Pain, Moderate (4-6) Last Admin: 06/16/18 05:48 Dose: 1 tab Sodium Chloride (Sodium Chloride Flush Syringe 10 Ml) 10 ml IV BID [facility] Last Admin: 06/16/18 10:09 Dose: 10 ml Sodium Chloride (Sodium Chloride Flush Syringe 10 Ml) 10 ml IV PRN PRN PRN Reason: LINE FLUSH Physical Examination - Physical Exam Narrative exam: Physical Exam: Constitutional: Alert, cooperative. No acute distress Head, Ears, Nose: Normocephalic, atraumatic. External ears, nose normal Eyes: Conjunctivae/corneas clear. No icterus. No ptosis. Neck: Supple, no meningeal signs Oral: dentition fair, mild periodontal disease +, no thrush Cardiovascular: S1, S2 normal. Respiratory: Good air entry, clear to auscultation bilaterally GI: Soft, non-tender; bowel sounds normal. No peritoneal signs Musculoskeletal: Right leg lateral to tibial region with a large surgical wound with packing, base with good healthy tissue with some bleeding. Left knee with swelling, warmth and tenderness and effusion. Skin: No rash or abscess Hem/Lymphatic: No palpable cervical or supraclavicular nodes. No lymphangitis Psych: Mood ok. Affect normal Neurological: Awake, alert, oriented. No gross abnormality - Constitutional Vitals: Vital Signs Temp Pulse Resp BP Pulse Ox 99.5 F 83 18 135/77 97 06/16/18 05:49 06/16/18 05:49 06/16/18 05:49 06/16/18 05:49 06/16/18 05:49 Temperature -Last 24 Hours Temperature 99.5 F Temperature 98.6 F Temperature 99.4 F Results - Labs CBC & Chem 7: 06/15/18 05:02 06/15/18 05:02 - Imaging and Cardiology Chest x-ray: report reviewed, image reviewed (Chest x-ray 06/14/2018: Shows no acute cardiopulmonary abnormality.) Assessment and Plan MRI of the right lower extremity images reviewed, showed a subcutaneous fluid collection, about 5.7 x 1.8 x 8 cm in size. Cultures: 06/14/2018 blood culture: No growth 06/14/2018 culture: No anaerobic growth. Gram stain shows rare gram-positive cocci. Culture in process. A/P: 62-year-old male with: #1 Right lower extremity cellulitis with associated abscess: Status post I&D on 06/14/2018. Denies any trauma. Etiology, unclear. Gram stain from OR culture showing rare gram-positive cocci. Continue IV vancomycin. Discontinue other antimicrobials. Follow-up culture results to determine outpatient oral antibiotic therapy. No evidence of bone infection on MRI. Continue wound care upon discharge. #2 Leucocytosis: resolved. #3 Acute monoarticular arthritis, left knee: started after admission. Does report a remote history of gout, not on any medications. There is warmth, tenderness and effusion. Gout v/s septic. Will recommend checking uric acid and ortho consult for arthrocentesis for cell count, crystal and culture evaluation. Of note, uric acid can at times be low during an acute gouty attack , hence if elevated, will be helpful, but if normal or low, doesn't rule out gout. Recs: - continue IV Vancomycin, target trough: 10-20 mcg/ml - discontinued Cefepime and Flagyl - uric acid level ordered - consult orthopedics for arthrocentesis of left knee for cell count, crystal and culture evaluation - continue wound care of RLE - follow up final OR cultures Will follow. Plan discussed with Dr. Mclaughlin. Please call with questions. Odessa Rasmussen MD [facility] C: [phone] O: [phone] F: [phone]
[2018-06-16] MEDS: LACTATED RINGERS 1,000 ML IV SCH (13:06)
[2018-06-16] MEDS ORDERED: MAXIPIME/NS 2 GM/100 ML 2 GM/100 ML BAG IV SCH (14:00)
[2018-06-16] MEDS ORDERED: FLAGYL 500 MG/100 ML 500 MG/100 ML BAG IV SCH (14:00)
[2018-06-16] MEDS: INDOCIN PO SCH ×2 (15:58→22:07)
[2018-06-17] MEDS: LACTATED RINGERS 1,000 ML IV SCH ×2 (02:58→21:21)
[2018-06-17] MEDS: INDOCIN PO SCH ×3 (05:49→21:35)
[2018-06-17] MEDS: VANCOMYCIN 1,750 MG in NACL 0.9% 500 ML 500 ML IV SCH ×2 (05:49→21:38)
[2018-06-17] MEDS: PERCOCET 5/325 PO PRN ×3 (09:41→21:36)
[2018-06-17] MEDS: SODIUM CHLORIDE FLUSH SYRINGE 10 ML IV SCH ×2 (09:42→21:26)
[2018-06-17] MEDS: PEPCID PO SCH ×2 (09:42→21:36)
--- NOTE | 2018-06-17 12:11 | Progress Note ---
Assessment and Plan Cultures: 06/14/2018 blood culture: No growth 06/14/2018 culture: No anaerobic growth. Gram stain shows rare gram-positive cocci. Culture in process. A/P: 62-year-old male with: #1 Right lower extremity cellulitis with associated abscess: Status post I&D on 06/14/2018. Denies any trauma. Etiology, unclear. Gram stain from OR culture showing rare gram-positive cocci. Continue IV vancomycin. Discontinue other antimicrobials. Follow-up culture results to determine outpatient oral antibiotic therapy. No evidence of bone infection on MRI. Continue wound care upon discharge. #2 Leucocytosis: resolved. #3 Acute monoarticular arthritis, left knee: started after admission. Does report a remote history of gout, not on any medications. There is warmth, tenderness and effusion. Gout v/s septic. Awaiting ortho consult for arthrocentesis for cell count, crystal and culture evaluation. Of note, uric acid returned at 3.9 but can at times be low during an acute gouty attack, hence doesn't rule out gout. Recs: - continue IV Vancomycin, target trough: 10-20 mcg/ml - consult orthopedics for arthrocentesis of left knee for cell count, crystal and culture evaluation - continue wound care of RLE - follow up final OR cultures Will follow. Please call with questions. Odessa Rasmussen MD [facility] C: [phone] O: [phone] F: [phone] Subjective Date of service: 06/17/18 Principal diagnosis: Rt leg abscess Interval history: Continues to feel pain in his left knee with swelling. Awaiting ortho eval. No fever or chills. No rash. Objective - Exam Narrative Exam: Physical Exam: Constitutional: Alert, cooperative. No acute distress Head, Ears, Nose: Normocephalic, atraumatic. External ears, nose normal Eyes: Conjunctivae/corneas clear. No icterus. No ptosis. Neck: Supple. Oral: dentition fair, no thrush or ulcers Cardiovascular: S1, S2 normal, no murmur Respiratory: Good air entry, clear to auscultation bilaterally GI: Soft, non-tender; bowel sounds normal. No peritoneal signs Musculoskeletal: Right leg lateral to tibial region with a large surgical wound with packing, base with good healthy tissue with some bleeding. Left knee with swelling, warmth and tenderness and effusion. Skin: No rash or abscess. Hem/Lymphatic: No palpable cervical or supraclavicular nodes. No lymphangitis Psych: Mood ok. Affect normal. Neurological: Awake, alert, oriented. No gross abnormality - Constitutional Vitals: Vital Signs Temp Pulse Resp BP Pulse Ox 98.1 F 58 L 20 126/91 98 06/17/18 06:18 06/17/18 06:18 06/17/18 06:18 06/17/18 06:18 06/17/18 06:18 Temperature -Last 24 Hours Temperature 98.1 F Temperature 98.5 F Temperature 99.2 F - Labs CBC & Chem 7: 06/15/18 05:02 06/15/18 05:02
--- NOTE | 2018-06-17 17:17 | Progress Note ---
Assessment and Plan Assessment and plan: 62M who pw with pain, swelling in Right leg Cellulitis of R leg, right/sepsis sp I and D, awaiting wound cx report continue abx, case dw ID His Surgeon is Jalil Hughes LEft knee swelling and pain -?gout? started indocin -consulted Ortho sx, for possible arthrocentesis, send for cell count, Culture and crystal eval Malnutrition Dietary supplements DVT prophylaxis On Lovenox and GI prophylaxis History Interval history: c/o Left knee pain and swelling Review of systems Constitutional: No fevers, no malaise, no joint pains CVS: No chest pain, no orthopnea, no dyspnea on exertion, no pedal edema GI: No abdominal pain, no diarrhea, no vomiting, no constipation Respiratory: No shortness of breath, no wheezing, no coughing Hospitalist Physical - Physical exam Narrative exam: General.: Appears well, no distress, nontoxic HEENT: Moist mucous membranes, extraocular muscles intact, no lymphadenopathy Neck: supple Cardiac: S1-S2 heard Lungs: clear to auscultation bilaterally Abdomen: soft , nontender, nondistended, bowel sounds positive Extremities: Right leg with clean surgical dressing, Left knee pain and swelling neurologic: no gross focal deficits Psych: appropriate behavior, appropriate mood, corporative, judgment intact - Constitutional Vitals: Temp Pulse Resp BP Pulse Ox 98.1 F 81 24 132/76 97 06/17/18 12:25 06/17/18 12:25 06/17/18 12:25 06/17/18 12:25 06/17/18 12:25 General appearance: Present: no acute distress, well-nourished Results - Labs CBC & Chem 7: 06/15/18 05:02 06/15/18 05:02 Labs: Laboratory Last Values WBC 7.9 K/mm3 (4.5-11.0) 06/15/18 05:02 RBC 4.20 M/mm3 (3.65-5.03) 06/15/18 05:02 Hgb 12.9 gm/dl (11.8-15.2) 06/15/18 05:02 Hct 38.8 % (35.5-45.6) 06/15/18 05:02 MCV 92 fl (84-94) 06/15/18 05:02 MCH 31 pg (28-32) 06/15/18 05:02 MCHC 33 % (32-34) 06/15/18 05:02 RDW 13.8 % (13.2-15.2) 06/15/18 05:02 Plt Count 465 K/mm3 (140-440) H 06/15/18 05:02 Lymph % (Auto) 10.9 % (13.4-35.0) L 06/15/18 05:02 [place] % (Auto) 13.7 % (0.0-7.3) H 06/15/18 05:02 Eos % (Auto) 2.8 % (0.0-4.3) 06/15/18 05:02 Baso % (Auto) 0.5 % (0.0-1.8) 06/15/18 05:02 Lymph # 0.9 K/mm3 (1.2-5.4) L 06/15/18 05:02 [place] # 1.1 K/mm3 (0.0-0.8) H 06/15/18 05:02 Eos # 0.2 K/mm3 (0.0-0.4) 06/15/18 05:02 Baso # 0.0 K/mm3 (0.0-0.1) 06/15/18 05:02 Seg Neutrophils % 72.1 % (40.0-70.0) H 06/15/18 05:02 Seg Neutrophils # 5.7 K/mm3 (1.8-7.7) 06/15/18 05:02 Sodium 133 mmol/L (137-145) L 06/15/18 05:02 Potassium 4.5 mmol/L (3.6-5.0) 06/15/18 05:02 Chloride 96.8 mmol/L (98-107) L 06/15/18 05:02 Carbon Dioxide 27 mmol/L (22-30) 06/15/18 05:02 Anion Gap 14 mmol/L 06/15/18 05:02 BUN 18 mg/dL (9-20) 06/15/18 05:02 Creatinine 0.7 mg/dL (0.8-1.5) L 06/15/18 05:02 Estimated GFR > 60 ml/min 06/15/18 05:02 BUN/Creatinine Ratio 26 % 06/15/18 05:02 Glucose 89 mg/dL (75-100) 06/15/18 05:02 POC Glucose 81 (70-105) 06/15/18 07:44 Hemoglobin A1c 6.1 % (4-6) H 06/08/18 19:32 Uric Acid 3.9 mg/dL (3.5-7.6) 06/16/18 13:26 Calcium 8.9 mg/dL (8.4-10.2) 06/15/18 05:02 Magnesium 1.90 mg/dL (1.7-2.3) 06/10/18 05:30 Total Bilirubin 0.40 mg/dL (0.1-1.2) 06/15/18 05:02 AST 20 units/L (5-40) 06/15/18 05:02 ALT 21 units/L (7-56) 06/15/18 05:02 Alkaline Phosphatase 60 units/L (35-129) 06/15/18 05:02 Total Protein 7.9 g/dL (6.3-8.2) 06/15/18 05:02 Albumin 3.2 g/dL (3.9-5) L 06/15/18 05:02 Albumin/Globulin Ratio 0.7 % 06/15/18 05:02 Vancomycin Trough 8.3 ug/mL (5.0-20.0) 06/12/18 19:41
[2018-06-18] MEDS: VANCOMYCIN 1,750 MG in NACL 0.9% 500 ML 500 ML IV SCH ×2 (05:17→06:17)
[2018-06-18] MEDS: LACTATED RINGERS 1,000 ML IV SCH ×2 (05:19→16:27)
[2018-06-18] MEDS: INDOCIN PO SCH ×3 (05:23→21:12)
[2018-06-18] MEDS: PERCOCET 5/325 PO PRN (06:52)
[2018-06-18] MEDS: PEPCID PO SCH ×2 (09:10→21:12)
[2018-06-18] MEDS: MORPHINE IV PRN (09:11)
--- NOTE | 2018-06-18 09:31 | Consultation ---
History of Present Illness - [facility] Consult date: 06/17/18 Consult reason: joint pain History of present illness: 62-year-old male who complains of left knee pain and swelling off and on for some time whoever within the last several days patient states the pain has gotten worse he denies a history of trauma states the pain is worse with weightbearing. Since admission patient states he was started on anti- inflammatory medication which has helped alleviate some of the pain and swelling to the left knee Past History Past Medical History: other (BPH). denies: hypertension (history of hypertension that reportedly returned to baseline after he lost weight, he denies taking any chronic medications.) Past Surgical History: No surgical history Social history: no significant social history, Lives alone. denies: smoking ( remote brief period (approximately 6 months) of smoking history in his 20s) Family history: hypertension Medications and Allergies Allergies Allergy/AdvReac Type Severity Reaction Status Date / Time No Known Allergies Allergy Unverified 06/08/18 11:40 Active Meds: Active Medications Acetaminophen (Tylenol) 650 mg PO Q4H PRN PRN Reason: Pain MILD(1-3)/Fever >100.5/LUNA Last Admin: 06/13/18 18:32 Dose: 650 mg Famotidine (Pepcid) 20 mg PO BID [facility] Last Admin: 06/18/18 09:10 Dose: 20 mg Vancomycin HCl 1,750 mg/ (Sodium Chloride) 517.5 mls @ 333.333 mls/hr IV Q12H [facility] Last Admin: 06/18/18 06:17 Dose: 333.333 mls/hr Lactated Ringer's (Lactated Ringers) 1,000 mls @ 100 mls/hr IV DIRECT [facility] Last Admin: 06/18/18 05:19 Dose: 100 mls/hr Indomethacin (Indocin) 25 mg PO Q8HR [facility] Last Admin: 06/18/18 05:23 Dose: 25 mg Morphine Sulfate (Morphine) 2 mg IV Q4H PRN PRN Reason: Pain, Moderate (4-6) if NPO Last Admin: 06/18/18 09:11 Dose: 2 mg Ondansetron HCl (Zofran) 4 mg IV Q8H PRN PRN Reason: Nausea And Vomiting Last Admin: 06/12/18 01:19 Dose: 4 mg Oxycodone/Acetaminophen (Percocet 5/325) 1 tab PO Q6H PRN PRN Reason: Pain, Moderate (4-6) Last Admin: 06/18/18 06:52 Dose: 1 tab Sodium Chloride (Sodium Chloride Flush Syringe 10 Ml) 10 ml IV BID [facility] Last Admin: 06/17/18 21:26 Dose: 10 ml Sodium Chloride (Sodium Chloride Flush Syringe 10 Ml) 10 ml IV PRN PRN PRN Reason: LINE FLUSH Physical Examination - Physical exam Narrative exam: PHYSICAL examination the left knee was examined patient was noted to have 1+ joint effusion there is no redness or erythema patient had passive range of motion from 0-45 flexion there was some mild joint line tenderness along with crepitus noted and no obvious ligament instability Plain x-rays taken on admission of the left knee were examined by me and showed mild to moderate degenerative joint disease Eyes: PERRL ENT: Positive: clear oral mucosa Respiratory effort: normal Respiratory: bilateral: CTA Rhythm: regular Heart Sounds: Positive: S1 & S2 General gastrointestinal: Positive: soft, non-tender, non-distended, normal bowel sounds Integumentary: clear, warm, dry Neurologic: Positive: CNII-XII intact, moves all extremities, gait normal. Negative: focal deficits Assessment and Plan Assessment patient has left knee pain mild swelling about sepsis in this particular patient will likely osteoarthritis Recommendations - continue oral anti-inflammatory medication and observation doubt if aspiration in this situation is necessary
--- NOTE | 2018-06-18 12:39 | Progress Note ---
Assessment and Plan Cultures: 06/14/2018 blood culture: No growth 06/14/2018 Anerobic culture: no growth 06/14/18 Surgical Culture - Beta Hemolytic Strep Group G A/P: 62-year-old male with: #1 Right lower extremity cellulitis with associated abscess: Status post I&D on 06/14/2018. Denies any trauma. Etiology, unclear. Gram stain from OR culture showing rare gram-positive cocci. Continue IV vancomycin. Discontinue other antimicrobials. Follow-up culture results to determine outpatient oral antibiotic therapy. No evidence of bone infection on MRI. Continue wound care upon discharge. #2 Leukocytosis: resolved. #3 Acute monoarticular arthritis, left knee: started after admission. Does report a remote history of gout, not on any medications. There is warmth, tenderness and effusion. Gout v/s septic. Awaiting ortho consult for arthrocentesis for cell count, crystal and culture evaluation. Of note, uric acid returned at 3.9 but can at times be low during an acute gouty attack, hence doesn't rule out gout. Recs: - discontinue vancomycin -start keflex 750mg. po QID for 7 days ending 06-24-18 - continue wound care of RLE -Follow up in ID clinic after antibiotic regimen is complete ID is signing off [facility] M: [id number] O:[phone] - Subjective Date of service: 06/18/18 Principal diagnosis: Rt leg abscess Interval history: Patient was seen and examined. Denies pain, fever SOB or rash. Nurses notes , lab and reports reviewed, discussed with patient. Current Antimicrobials: Vancomycin Previous Antimicrobials: Objective - Exam Narrative Exam: Constitutional: Alert, cooperative. talkative Head, Ears, Nose: Normocephalic, atraumatic. External ears, nose normal Eyes: Conjunctivae/corneas clear. No icterus. No ptosis. Neck: Supple. Oral: dentition fair, no thrush or ulcers Cardiovascular: S1, S2 normal, no murmur Respiratory: Good air entry, clear to auscultation bilaterally GI: Soft, non-tender; bowel sounds normal. No peritoneal signs Musculoskeletal: Right leg lateral to tibial region with a large surgical wound with packing, base with good healthy tissue with minimal bleeding, dressing changed. Left knee with swelling, warmth and tenderness and effusion. Skin: No rash or abscess. Hem/Lymphatic: No palpable cervical or supraclavicular nodes. No lymphangitis Psych: Mood ok. Affect normal. Neurological: Awake, alert, oriented. No gross abnormality - Constitutional Vitals: Vital Signs Temp Pulse Resp BP Pulse Ox 98.9 F 75 18 135/79 97 06/18/18 04:44 06/18/18 04:44 06/18/18 04:44 06/18/18 04:44 06/18/18 04:44 Temperature -Last 24 Hours Temperature 98.9 F Temperature 98.2 F Temperature 98.7 F - Labs CBC & Chem 7: 06/15/18 05:02 06/15/18 05:02
[2018-06-18] MEDS: SODIUM CHLORIDE FLUSH SYRINGE 10 ML IV SCH ×2 (12:54→21:12)
--- NOTE | 2018-06-18 13:31 | Progress Note ---
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 Follow-up on current diagnosis of right leg infection improving, left knee swelling and pain also improving. Overnight uneventful. Patient denies any chest pain, shortness breath, nausea/vomiting or severe headaches. Imaging, nursing note, chart, labs and old chart reviewed. Discussed with patient. Hospitalist Physical - Physical exam Narrative exam: GEN: WDWN, NAD, Awake, Alert, Orientated x 3 HEENT: NCAT, EOMI, PERRL, OP Clear NECK: supple, no adenopathy, no thyromegaly, no JVD CVS/HEART: RRR, normal S1S2, pulses present bilaterally CHEST/LUNGS: CTA B, Symmetrical chest expansion, good air entry bilaterally GI/Abdomen: soft, NTND, good bowel sounds, no guarding or rebound /Bladder: no suprapubic tenderness, no CVA or paraspinal tenderness EXT/Skin: right lower ulceration with anterior necrotic area and area of red moveable fluid above the necrotic core MSK: FROM x 4 Neuro: CN 2-12 grossly intact, no new focal deficits Psych: calm - Constitutional Vitals: Temp Pulse Resp BP Pulse Ox 98.9 F 75 18 135/79 97 06/18/18 04:44 06/18/18 04:44 06/18/18 04:44 06/18/18 04:44 06/18/18 04:44 General appearance: Present: no acute distress, well-nourished Results - Labs CBC & Chem 7: 06/15/18 05:02 06/15/18 05:02 Labs: Laboratory Last Values WBC 7.9 K/mm3 (4.5-11.0) 06/15/18 05:02 RBC 4.20 M/mm3 (3.65-5.03) 06/15/18 05:02 Hgb 12.9 gm/dl (11.8-15.2) 06/15/18 05:02 Hct 38.8 % (35.5-45.6) 06/15/18 05:02 MCV 92 fl (84-94) 06/15/18 05:02 MCH 31 pg (28-32) 06/15/18 05:02 MCHC 33 % (32-34) 06/15/18 05:02 RDW 13.8 % (13.2-15.2) 06/15/18 05:02 Plt Count 465 K/mm3 (140-440) H 06/15/18 05:02 Lymph % (Auto) 10.9 % (13.4-35.0) L 06/15/18 05:02 Trigg % (Auto) 13.7 % (0.0-7.3) H 06/15/18 05:02 Eos % (Auto) 2.8 % (0.0-4.3) 06/15/18 05:02 Baso % (Auto) 0.5 % (0.0-1.8) 06/15/18 05:02 Lymph # 0.9 K/mm3 (1.2-5.4) L 06/15/18 05:02 Trigg # 1.1 K/mm3 (0.0-0.8) H 06/15/18 05:02 Eos # 0.2 K/mm3 (0.0-0.4) 06/15/18 05:02 Baso # 0.0 K/mm3 (0.0-0.1) 06/15/18 05:02 Seg Neutrophils % 72.1 % (40.0-70.0) H 06/15/18 05:02 Seg Neutrophils # 5.7 K/mm3 (1.8-7.7) 06/15/18 05:02 Sodium 133 mmol/L (137-145) L 06/15/18 05:02 Potassium 4.5 mmol/L (3.6-5.0) 06/15/18 05:02 Chloride 96.8 mmol/L (98-107) L 06/15/18 05:02 Carbon Dioxide 27 mmol/L (22-30) 06/15/18 05:02 Anion Gap 14 mmol/L 06/15/18 05:02 BUN 18 mg/dL (9-20) 06/15/18 05:02 Creatinine 0.7 mg/dL (0.8-1.5) L 06/15/18 05:02 Estimated GFR > 60 ml/min 06/15/18 05:02 BUN/Creatinine Ratio 26 % 06/15/18 05:02 Glucose 89 mg/dL (75-100) 06/15/18 05:02 POC Glucose 81 (70-105) 06/15/18 07:44 Hemoglobin A1c 6.1 % (4-6) H 06/08/18 19:32 Uric Acid 3.9 mg/dL (3.5-7.6) 06/16/18 13:26 Calcium 8.9 mg/dL (8.4-10.2) 06/15/18 05:02 Magnesium 1.90 mg/dL (1.7-2.3) 06/10/18 05:30 Total Bilirubin 0.40 mg/dL (0.1-1.2) 06/15/18 05:02 AST 20 units/L (5-40) 06/15/18 05:02 ALT 21 units/L (7-56) 06/15/18 05:02 Alkaline Phosphatase 60 units/L (35-129) 06/15/18 05:02 Total Protein 7.9 g/dL (6.3-8.2) 06/15/18 05:02 Albumin 3.2 g/dL (3.9-5) L 06/15/18 05:02 Albumin/Globulin Ratio 0.7 % 06/15/18 05:02 Vancomycin Trough 13.8 ug/mL (5.0-20.0) 06/18/18 04:55
[2018-06-18] MEDS: KEFLEX PO SCH ×2 (16:27→23:59)
[2018-06-18] MEDS ORDERED: KEFLEX PO SCH (18:00)
[2018-06-19] MEDS: PERCOCET 5/325 PO PRN (00:02)
[2018-06-19] MEDS: LACTATED RINGERS 1,000 ML IV SCH (04:51)
[2018-06-19 04:54] LABS: Hemoglobin 12.3 gm/dl (11.8-15.2); Mean Corpuscular HGB Conc 33 % (32-34); Mean Corpuscular Hemoglobin 31 pg (28-32); Mean Corpuscular Volume 92 fl (84-94); Platelet Count 427 K/mm3 (140-440); Red Blood Count 4.01 M/mm3 (3.65-5.03); Red Cell Distribution Width 13.2 % (13.2-15.2)
[2018-06-19 05:12] LABS: BUN/Creatinine Ratio 20; Blood Urea Nitrogen 12 mg/dL (9-20); Calcium 8.7 mg/dL (8.4-10.2); Hemolysis Index 0
[2018-06-19 05:21] VITALS: BP 163/80
[2018-06-19] MEDS: INDOCIN PO SCH ×2 (06:20→14:13)
[2018-06-19] MEDS: PEPCID PO SCH (09:52)
[2018-06-19] MEDS: KEFLEX PO SCH (10:20)
[2018-06-19] MEDS: SODIUM CHLORIDE FLUSH SYRINGE 10 ML IV SCH (14:13)
--- NOTE | 2018-06-19 14:45 | Discharge Summary ---
Providers - Providers Date of Admission: 06/08/18 16:02 Date of discharge: 06/19/18 Attending physician: JESSICA WHITMORE 06/08/18 17:49 Consult to Physician [CONS] Routine Comment: Consulting Provider: REZA RICHARDSON Physician Instructions: Reason For Exam: RLE Abscess 06/08/18 21:24 Consult to Wound/ET Nurse [CONS] Routine Reason For Exam: wound eval /culture 06/10/18 14:03 Consult to Physician [CONS] Routine Comment: Consulting Provider: DONNA MONAHAN Physician Instructions: Reason For Exam: right lower leg abscess, evaluate for PAD/surgery 06/10/18 14:05 Consult to Physician [CONS] Routine Comment: Consulting Provider: KALEE ROSALES Physician Instructions: Reason For Exam: right lower leg abscess needing draining 06/10/18 14:14 Consult to Dietitian/Nutrition [CONS] Routine Physician Instructions: Reason For Exam: Reason for Consult: Malnutrition 06/16/18 11:11 Consult to Physician [CONS] Routine Comment: Consulting Provider: CARLOS MEDINA Physician Instructions: Reason For Exam: cellulitis and abscess 06/17/18 00:41 Consult to Physician [CONS] Routine Comment: Consulting Provider: YULISSA BROWNING Physician Instructions: Reason For Exam: need left knee tap 06/18/18 16:09 Physical Therapy Evaluation and Treat [CONS] Routine Comment: Reason For Exam: LE weakness Primary care physician: PRISON OFFICER Hospitalization Condition: Stable Hospital course: Patient is a 62 yo man with no sig PMH comes in for Rt leg swelling and pains Cellulitis of leg, right s/p I-n-D 06/14/18: continue to treat with ABX per ID Left knee OA flare, improving with NSAIDs Mild malnutrition, 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 Hyperkalemia, resolved: monitor closely Hypoglycemia, resolved: monitor closely DVT prophylaxis: add sq heparin Disposition: DC-01 TO HOME OR SELFCARE Time spent for discharge: 35 minutes Core Measure Documentation - Palliative Care Palliative Care/ Comfort Measures: Not Applicable - Core Measures Any of the following diagnoses?: none - VTE Discharge Requirements Deep Vein Thrombosis/Pulmonary Embolism Present on Admission: No Has pt received <5 days of overlap therapy or INR<2.0: No Anticoagulant overlap therapy prescribed at discharge: No Contraindication No Overlap Therapy order at DC: Not Indicated Exam - Physical Exam Narrative exam: GEN: WDWN, NAD, Awake, Alert, Orientated x 3 HEENT: NCAT, EOMI, PERRL, OP Clear NECK: supple, no adenopathy, no thyromegaly, no JVD CVS/HEART: RRR, normal S1S2, pulses present bilaterally CHEST/LUNGS: CTA B, Symmetrical chest expansion, good air entry bilaterally GI/Abdomen: soft, NTND, good bowel sounds, no guarding or rebound /Bladder: no suprapubic tenderness, no CVA or paraspinal tenderness EXT/Skin: right lower ulceration with anterior necrotic area and area of red moveable fluid above the necrotic core MSK: FROM x 4 Neuro: CN 2-12 grossly intact, no new focal deficits Psych: calm - Constitutional Vitals: Temp Pulse Resp BP Pulse Ox 98.1 F 52 L 24 163/80 98 06/19/18 04:51 06/19/18 04:51 06/19/18 04:51 06/19/18 04:51 06/19/18 04:51 Plan Activity: other (no strenous activity until cleared by ID) Diet: low salt Wound: per wound nurse instructions (PACK WOUND WITH MESALT DRESSING, COVER THE WOUND WITH ABD PAD, WRAP WOUND WITH KERLIX, SECURE DRESSING WITH TAPE.) Additional Instructions: No working until cleared by Infectious Disease Follow up with: PRIMARY CARE, [Primary Care Provider] - 7 Days KALEE ROSALES MD [Staff Physician] - 7 Days REINA NORIEGA MD [Staff Physician] - 7 Days Prescriptions: Cephalexin [Keflex] 750 mg PO QID 5 Days capsule oxyCODONE /ACETAMINOPHEN [Percocet 5/325 mg] 1 tab PO Q6H PRN #15 tablet PRN Reason: Pain , Severe (7-10)
[2018-06-19] MEDS ORDERED: PNEUMOVAX 23 IM ONE (15:00)
--- NOTE | 2018-06-21 09:17 | Vascular Lab Report ---
LOWER EXTREMITY ARTERIAL PHYSIOLOGIC STUDY: REASON FOR EXAM: Peripheral arterial disease. COMMENTS ON THE RIGHT: Ankle brachial index is 1.12. This value is normal. Toe brachial index is indeterminate because vessels are incompressible.. This value is abnormal. Wound healing is impossible to predict. Pulse volume recording at the level of the ankle is normal. Exercise testing was not done. COMMENTS ON THE LEFT: Ankle brachial index is 0.98. This value is normal. Toe brachial index is indeterminate because vessels are noncompressible. This value is abnormal. Wound healing is impossible to predict. Pulse volume recording at the level of the ankle is normal. Exercise testing was not done. IMPRESSION: RIGHT: Normal ankle-brachial index. Normal pulse volume recording. Abnormal digital perfusion of unknown magnitude. Consider further evaluation. LEFT:Normal ankle-brachial index. Normal pulse on recording. As on the right, there is a derangement of digital perfusion of unknown magnitude. Consider further evaluation.
== END 2018-06-19 16:20 | disposition home or self-care (01) | DRG 854 ==
LOC: ED 11:21 → 3A 16:02
PROVIDERS: ADMIT Internal Medicine; ATTEND Internal Medicine
PROC: 0J9N0ZZ Drainage of Right Lower Leg Subcutaneous Tissue and Fascia, Open Approach (ICD-10-PCS; principal; 2018-06-14)
PROC: 3E0234Z Introduction of Serum, Toxoid and Vaccine into Muscle, Percutaneous Approach (ICD-10-PCS; 2018-06-19)
DX: A41.9 Sepsis, unspecified organism (principal); L03.115 Cellulitis of right lower limb; E44.1 Mild protein-calorie malnutrition; L02.415 Cutaneous abscess of right lower limb; E87.5 Hyperkalemia; E16.2 Hypoglycemia, unspecified; M13.862 Other specified arthritis, left knee; N40.0 Benign prostatic hyperplasia without lower urinary tract symptoms; Z60.2 Problems related to living alone; Z23 Encounter for immunization; Z82.49 Family history of ischemic heart disease and other diseases of the circulatory system; Z68.27 Body mass index [BMI] 27.0-27.9, adult
CPT/HCPCS: 36415; 71045; 80048; 80053; 80202; 82962; 83036; 83735; 84550; 85025; 85027; 87040; 87075; 87116; 90686; 90732; 93922; 93925; 96365; 96375; J0295; J0690; J0692; J1170; J1644; J2250; J2270; J2405; J2704; J3370; J7040; J7120

== ENCOUNTER 2022-03-09 06:20 | Emergency (ER) | payer MEDICARE, OTHER ==
[2022-03-09] MEDS ORDERED: MORPHINE 4 MG/1 ML INJ IM ONE (06:43)
--- NOTE | 2022-03-09 06:47 | Emergency Department Report ---
ED Male HPI - General Stated complaint: URINE RETENTION Time Seen by Provider: 03/09/22 06:40 Source: patient - History of Present Illness Initial comments: Patient is a 66-year-old male presenting to ED via EMS from home with complaint of inability to urinate. States he had Garcia catheter removed 3 days ago that was initially placed for urinary retention. Reports no urination in the past 2 days with severe urgency. - Related Data Previous Rx's Medication Instructions Recorded Last Taken Type Acetaminophen [Acetaminophen TAB] 650 mg PO Q4H PRN #15 tablet 06/19/18 Unknown Rx Famotidine [Pepcid] 20 mg PO BID #15 tablet 06/19/18 Unknown Rx cephALEXin [Keflex] 750 mg PO QID 5 Days capsule 06/19/18 Unknown Rx oxyCODONE /ACETAMINOPHEN [Percocet 1 tab PO Q6H PRN #15 tablet 06/19/18 Unknown Rx 5/325 mg] Allergies Allergy/AdvReac Type Severity Reaction Status Date / Time No Known Allergies Allergy Unverified 06/08/18 11:40 ED Review of Systems ROS: Stated complaint: URINE RETENTION Other details as noted in HPI Constitutional: denies: chills, fever Respiratory: denies: cough, shortness of breath, wheezing Cardiovascular: denies: chest pain, palpitations Gastrointestinal: abdominal pain. denies: nausea, diarrhea Genitourinary: urgency Musculoskeletal: denies: back pain, joint swelling, arthralgia Skin: denies: rash, lesions Neurological: denies: headache, weakness, paresthesias Psychiatric: denies: anxiety, depression ED Past Medical Hx - Past Medical History Hx Hypertension: Yes - Social History Smoking Status: Never Smoker - Medications Home Medications: Home Medications Medication Instructions Recorded Confirmed Last Taken Type Acetaminophen [Acetaminophen TAB] 650 mg PO Q4H PRN #15 tablet 06/19/18 Unknown Rx Famotidine [Pepcid] 20 mg PO BID #15 tablet 06/19/18 Unknown Rx cephALEXin [Keflex] 750 mg PO QID 5 Days capsule 06/19/18 Unknown Rx oxyCODONE /ACETAMINOPHEN [Percocet 1 tab PO Q6H PRN #15 tablet 06/19/18 Unknown Rx 5/325 mg] ED Physical Exam - General General appearance: alert, other (Appears uncomfortable) - Head Head exam: Present: atraumatic, normocephalic - Neck Neck exam: Present: normal inspection - Respiratory Respiratory exam: Present: normal lung sounds bilaterally. Absent: respiratory distress - Cardiovascular Cardiovascular Exam: Present: regular rate, normal rhythm, normal heart sounds - GI/Abdominal GI/Abdominal exam: Present: soft, tenderness (Suprapubic tenderness), other (Distended bladder) - Rectal Rectal exam: Present: deferred - Neurological Exam Neurological exam: Present: alert, oriented X3 - Psychiatric Psychiatric exam: Present: normal affect, normal mood - Skin Skin exam: Present: warm, dry, intact, normal color ED Course Vital Signs 03/09/22 03/09/22 03/09/22 08:43 09:02 10:54 Pulse Rate 80 90 80 Respiratory 18 18 18 Rate Blood Pressure 165/100 178/95 158/88 [Left] O2 Sat by Pulse 99 99 99 Oximetry ED Medical Decision Making - Medical Decision Making Garcia catheter placed with return of 2600 cc of cloudy urine. 2+ bacteria and large leukocyte esterase present. Patient is afebrile and hemodynamically stable. Will discharge home on Keflex for UTI and will leave Garcia in place. Critical care attestation.: If time is entered above; I have spent that time in minutes in the direct care of this critically ill patient, excluding procedure time. ED Disposition Clinical Impression: Bladder outlet obstruction Disposition: 01 HOME / SELF CARE / HOMELESS Is pt being admited?: No Condition: Stable Instructions: Indwelling Urinary Catheter Insertion, Indwelling Urinary Catheter Care, Adult Additional Instructions: Please follow-up with your regular doctor at your earliest convenience. You may return if your symptoms worsen. Keep your Garcia in place until you see your physician. Time of Disposition: 12:49
[2022-03-09] MEDS ORDERED: ONDANSETRON 4 MG ODT TAB PO ONE (08:01)
[2022-03-09] MEDS ORDERED: HYDROcodone/ACETAMINOPHEN 5-325 MG TAB PO ONE (08:43)
[2022-03-09 10:00] LABS: Bilirubin,Urine NEG (Negative); Blood,Urine LG (Negative); Color,Urine Yellow (Yellow); Urobilinogen,Urine < 2.0 mg/dL (<2.0)
[2022-03-09 10:22] LABS: RBC,Urine < 1.0 /HPF (0.0-6.0); WBC,Urine < 1.0 /HPF (0.0-6.0)
[2022-03-09 10:41] LABS: Bacteria,Urine 2+ /HPF (Negative)
[2022-03-09 14:57] VITALS: BP 116/69
== END 2022-03-09 14:57 | disposition home or self-care (01) ==
LOC: ED 06:20
DX: N32.0 Bladder-neck obstruction (principal)
CPT/HCPCS: 51702; 81001; 87076; 87086; 87186; 96372; 99284; J2270; J3490; Q0162